=== PATIENT | male | born 1945 | race Caucasian/White ===

== ENCOUNTER 2017-05-11 05:39 | Outpatient (CLI) | payer MEDICARE ==
[~2017-05-11] VITALS: Ht 172.7 cm; Wt 118.8 kg
[~2017-05-11 05:39] MED LIST: AMLO5TAB2 PO; ASP81TEC PO; DXZS4T PO; EZET1TAB43 PO; FURO20TA4 PO; HYDR-3583 PO; INSU100C SQ; LOSA1TAB15 PO; LOVASA PO; LVT.15T PO; MULT-608 PO; PGLT30T PO; QUIN20TA PO; TPR100T PO; VITA200C18 PO
[2017-05-11] MEDS ORDERED: ASPI-999 PO (11:57)
[2017-05-11] MEDS ORDERED: FURO40TA4 PO (11:57)
[2017-05-11] MEDS ORDERED: POTA10TA10 PO (11:57)
[2017-05-11] MEDS ORDERED: SIMV20TA3 PO (11:57)
[2017-05-11] MEDS ORDERED: OMEG1CAP PO (11:57)
[2017-05-11] MEDS ORDERED: LEVO200T6 PO (11:57)
[2017-05-11] MEDS ORDERED: FENO54TA PO (11:57)
[2017-05-11] MEDS ORDERED: PAMI30VI8 SQ (11:57)
[2017-05-11] MEDS ORDERED: MULT1TAB69 PO (11:57)
[2017-05-11] MEDS ORDERED: ACHD5005 PO (11:57)
[2017-05-11] MEDS ORDERED: LOSA1TAB23 PO (11:57)
[2017-05-11] MEDS ORDERED: DOXA4TAB2 PO (11:57)
== END 2017-05-11 11:59 ==
LOC: PREOP 05:39
PROVIDERS: ATTEND Surgery
DX: Z01.818 Encounter for other preprocedural examination (principal); Z12.11 Encounter for screening for malignant neoplasm of colon

== ENCOUNTER 2017-05-14 12:07 | Day surgery (SDC) | payer MEDICARE ==
[~2017-05-14] VITALS: Ht 172.7 cm; Wt 118.8 kg
[~2017-05-14 12:07] MED LIST changes: +ACHD5005 PO; +ASPI-999 PO; +DOXA4TAB2 PO; +FENO54TA PO; +FURO40TA4 PO; +LEVO200T6 PO; +LOSA1TAB23 PO; +MULT1TAB69 PO; +OMEG1CAP PO; +PAMI30VI8 SQ; +POTA10TA10 PO; +SIMV20TA3 PO
--- OUTSIDE RECORDS SUMMARY | 2017-05-14 12:11 | XMS REPORT | Clinical Summary ---
Author Author User, KEYANA Organization [facility] [place] Address Unknown Phone Unavailable Allergies, Adverse Reactions, Alerts Allergy Name Reaction Description Start Date Severity Status Provider No Known Allergies Sylvia Main Conditions or Problems Problem Name Problem Code Onset Date Status Entry Date Provider Comment Standard Description Annotate DIABETES MELLITUS, TYPE II, ON INSULIN, CONTROLLED 250.00 Refinement Brandy Valero Diabetes mellitus without mention of complication, type II or unspecified type, not stated as uncontrolled DIABETES MELLITUS, TYPE I, UNCONTROLLED 250.03 Active Brandy Valero Diabetes mellitus without mention of complication, type I [juvenile type], uncontrolled HYPOTHYROIDISM 244.9 Active Brandy Valero Unspecified hypothyroidism HYPERTENSION, BENIGN ESSENTIAL, UNCONTROLLED 401.1 Active 07/27 Brandy Valero Benign essential hypertension HYPERCHOLESTEROLEMIA 272.0 Active Brandy Valero Pure hypercholesterolemia HYPERTRIGLYCERIDEMIA 272.1 Active Brandy Valero Pure hyperglyceridemia OBESITY 278.00 Active Brandy Valero Obesity, unspecified SNORING 786.09 Refinement Brandy Valero Other dyspnea and respiratory abnormality SLEEP APNEA, CHRONIC 780.57 Active Brandy Valero Unspecified sleep apnea BENIGN PROSTATIC HYPERTROPHY, HX OF V13.8 Active Brandy Valero Personal history of other specified diseases INSULIN PUMP STATUS V45.85 Active Brandy Valero Insulin pump status ACTINIC KERATOSIS 702.0 Resolved Brandy Valero Actinic keratosis SKIN TAG 701.9 Resolved Brandy Valero Unspecified hypertrophic and atrophic conditions of skin BENIGN PROSTATIC HYPERTROPHY, HX OF V13.8 Resolved Brandy Valero Personal history of other specified diseases ERECTILE DYSFUNCTION, 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 Brandy Valero Impotence of organic origin HYPOGLYCEMIA 251.2 Resolved Brandy Valero Hypoglycemia, unspecified RENAL INSUFFICIENCY 593.9 Active Brandy Valero Unspecified disorder of kidney and ureter CHEST PAIN, ATYPICAL 786.59 Resolved Brandy Valero Other chest pain NEUROPATHY, IDIOPATHIC PERIPHERAL 356.9 Resolved Brandy Valero Unspecified idiopathic peripheral neuropathy VACCINE AGAINST STREPTOCOCCUS PNEUMONIAE V03.82 Resolved Brandy Valero Need for prophylactic vaccination against Streptococcus pneumoniae [pneumococcus] HEMATOCHEZIA 578.1 Resolved Brandy Valero Blood in stool Medication List Medication Instructions Start Date Stop Date Generic Name NDC Status Provider Patient Instruction POTASSIUM CHLORIDE ER 10 MEQ CR-CAPS 1 po daily POTASSIUM CHLORIDE 39900618629 Active Brandy Valero SYNTHROID 0.175 MG TAB 1 PO daily LEVOTHYROXINE SODIUM 43224276921 Active Brandy Valero MOBIC 15 MG TABS 1 PO daily. MELOXICAM 76117569644 No Longer Active Brandy Valero HYDROCODONE-ACETAMINOPHEN 5-325 MG TABS 1 PO BID prn. HYDROCODONE- ACETAMINOPHEN 24643427741 Active Brandy Valero LORTAB 5/325 MG 1 to 2 PO Q6hrs prn LORTAB 5/325 MG No Longer Active Livier Rose ACCU-CHEK MULTICLIX LANCETS MISC Test BS QID DX: Diabetes 11/18 LANCETS [id number] No Longer Active Brandytejinder Valero ONE TOUCH ULTRA TEST SRIPS Test BS QID DX: Diabetes ONE TOUCH ULTRA TEST SRIPS No Longer Active Brandy Marlyn Valero ZOCOR 20 MG TAB 1 PO daily SIMVASTATIN 64353299923 Active Livier Rose LASIX 40 MG TAB 1 PO daily as directed FUROSEMIDE 00286637378 Active Brandy Marlyn Valero LOFIBRA 54 MG TABS 1 PO daily FENOFIBRATE 34187709452 Active Livier Rose ZOSTAVAX 74911 UNT/0.65ML SOLR 1 injection once to prevent Shingles ZOSTER VACCINE LIVE 44739626101 No Longer Active Brandy Marlyn Valero LOVAZA 1 GM CAPS 1 po QID AFLBD-9-LBNK ETHYL ESTERS 44379812067 Active Brandy Marlyn Valero ACCUPRIL 20 MG TABS 1 po bid QUINAPRIL HCL 34981087633 No Longer Active Brandy Marlyn Valero TOPAMAX 100 MG TABS 1 po QHS TOPIRAMATE 36711198427 Active Brandy Marlyn Valero TOPAMAX 50 MG TABS 1 po at HS along with 100 mg. to total 150 mg TOPIRAMATE 56390032552 No Longer Active Brandytejinder Valero VITAMIN D 1000 UNIT CAPS 1 po daily CHOLECALCIFEROL 10832553140 Active Brandy Marlyn Valero LASIX 20 MG TABS 1 PO daily FUROSEMIDE 80956226169 No Longer Active Brandy Marlyn Valero VIAGRA 50 MG TABS 1 PO as directed SILDENAFIL CITRATE 10500779468 No Longer Active Brandy Marlyn Valero ECOTRIN 325 MG TBEC 1 po daily ASPIRIN 78624179277 No Longer Active Brandy Marlyn Valero CARDURA 4 MG TABS 1 PO daily DOXAZOSIN MESYLATE 45069585061 Active Livier Rose DOXAZOSIN MESYLATE 4 MG TABS 1 po at hs DOXAZOSIN MESYLATE 68757601789 No Longer Active Brandy Valero GLUCOPHAGE 500 MG TABS 1 po BID METFORMIN HCL 09455583407 No Longer Active Brandytejinder Valero LORTAB 5 5-500 MG TABS 1 to 2 PO Q6hrs prn ACETAMINOPHEN- HYDROCODONE 15165418078 No Longer Active Livier Rose NORVASC 5 MG TAB 1 PO QD AMLODIPINE BESYLATE 53414016228 Active Brandytejinder Valero MADHAV-D 12 HOUR 60-120 MG TB12 1 PO BID prn sinus congestion FEXOFENADINE-PSEUDOEPHEDRINE 88274027498 No Longer Active Brandytejinder Valero LORTAB 5 5-500 MG TABS 1 to 2 PO Q6hrs prn ACETAMINOPHEN- HYDROCODONE 28759049439 No Longer Active Brandy Valero AVANDIA 2 MG TABS 1 po BID ROSIGLITAZONE MALEATE 93843326250 No Longer Active Brandytejinder Valero QUINAPRIL HCL 40 MG TABS 1 po BID QUINAPRIL HCL 29763501046 No Longer Active Brandy Valero ROBITUSSIN A-C 10-100 MG/5ML SYRUP 5cc PO Q 4-6 hr prn ROBITUSSIN A-C 10-100 MG/5ML SYRUP 89996919596 No Longer Active Livier Rose ACCU-CHEK MAXINE TEST SRIPS Test BS QID DX: Diabetes ACCU- CHEK MAXINE TEST SRIPS No Longer Active Livier Rose CIALIS 20 MG TABS 1 PO before sexual activity TADALAFIL 66567022296 No Longer Active Brandy Valero HUMALOG 100 U/ML SOLN 1 unit/hr basal and 25 units before meals INSULIN LISPRO (HUMAN) 25981943788 Active Livier Rose ASPIRIN 81 MG TBEC 2 po daily ASPIRIN 00732263891 Active Brandytejinder Valreo VYTORIN 10-20 MG TABS 1 po daily EZETIMIBE-SIMVASTATIN 22061235164 No Longer Active Philip Barrett FISH OIL 1000 MG CAPS 3 po daily OMEGA-3 FATTY ACIDS 54594632778 No Longer Active Brandy Valero VITAMIN E 400 IU CAPS 1 po daily VITAMIN E 70480348967 Active Brandy Valero MULTIVITAMINS TABS 1 po daily MULTIPLE VITAMIN 15850844436 Active Brandy Valero HYZAAR 100-25 MG TABS 1 po daily LOSARTAN POTASSIUM-HCTZ 21615167417 Active Liviervalencia Rose LIPITOR 20 MG TABS 1 po daily ATORVASTATIN CALCIUM 87730867749 No Longer Active Livier Rose ACTOS 30 MG TABS 1 po daily PIOGLITAZONE HCL 14530203515 Active Livier Rose Immunizations Vaccine Administration Date Value Standard Description Influenza vaccine given done influenza virus vaccine, unspecified formulation Influenza vaccine given Done influenza virus vaccine, unspecified formulation Influenza vaccine given Done influenza virus vaccine, unspecified formulation Influenza vaccine given done influenza virus vaccine, unspecified formulation Influenza vaccine given Received influenza virus vaccine, unspecified formulation pneumococcal immunization administered 1st dose Dr Valero pneumococcal polysaccharide vaccine, 23 valent Vital Signs Date Name Value Unit Range Description blood pressure, diastolic - 8462-4 92 mm[Hg] BP pierre blood pressure, systolic - 8480-6 150 mm[Hg] BP sys pulse rate E&M - 8867-4 60 /min Heart rate respiratory rate E&M - 9279-1 14 /min Resp rate temperature E&M 98.6 [degF] Body temperature weight E&M - 3141-9 250 [lb_av] Weight Measured blood pressure, diastolic - 8462-4 75 mm[Hg] BP pierre blood pressure, systolic - 8480-6 145 mm[Hg] BP sys pulse rate E&M - 8867-4 66 /min Heart rate respiratory rate E&M - 9279-1 14 /min Resp rate temperature E&M 98.6 [degF] Body temperature weight E&M - 3141-9 263 [lb_av] Weight Measured blood pressure, diastolic - 8462-4 88 mm[Hg] BP pierre blood pressure, systolic - 8480-6 154 mm[Hg] BP sys pulse rate E&M - 8867-4 60 /min Heart rate respiratory rate E&M - 9279-1 18 /min Resp rate weight E&M - 3141-9 283 [lb_av] Weight Measured blood pressure, diastolic - 8462-4 78 mm[Hg] BP pierre blood pressure, systolic - 8480-6 150 mm[Hg] BP sys pulse rate E&M - 8867-4 72 /min Heart rate respiratory rate E&M - 9279-1 14 /min Resp rate temperature E&M 98.6 [degF] Body temperature weight E&M - 3141-9 270 [lb_av] Weight Measured Diagnostic Results Date Name Value Unit Range Description Clinical Lists Update: CBC,CMP,Chol,Trig,TSH,Free T4,HgA1c - Chemistry Estimated Glomerular Filtration Rate (calc) 48 mL/min/1.73m2 glucose, plasma fasting 84 mg/dL albumin, serum 4.0 g/dL alkaline phosphatase, serum 41 U/L urea nitrogen, blood 25 mg/dL calcium, serum 9.6 mg/dL chloride, serum 104 mmol/L carbon dioxide, venous blood 26.0 mmol/L anion gap, serum 13 sodium, serum 139 mmol/L bilirubin, serum, total 0.6 mg/dL alanine aminotransferase (SGPT), serum 15 U/L aspartate aminotransferase (SGOT), serum 15 U/L protein, total, serum 6.7 g/dL potassium, serum 3.6 mmol/L thyroid stimulating hormone, serum 1.78 u[iU]/mL hemoglobin A1C, blood, as % of total hemoglobin 6.5 % thyroxine, serum, free 1.28 ng/dL creatinine, serum 1.6 mg/dL Clinical Lists Update: CBC,CMP,Chol,Trig,TSH,Free T4,HgA1c - Hematology red blood cell distribution width 16.5 % hemoglobin, blood 13.3 g/dL platelet count 201 10*3/mm3 erythrocyte (RBC) count 4.63 10*6/mm3 leukocyte count, blood 6.0 10*3/mm3 mean corpuscular volume, RBC 92 fL hematocrit, blood 43 % Clinical Lists Update: CMP,CHOL,TRIG,TSH,FREE T4,HGA1C - Chemistry albumin, serum 4.2 g/dL thyroid stimulating hormone, serum 1.68 u[iU]/mL anion gap, serum 11 urea nitrogen, blood 30 mg/dL potassium, serum 3.3 mmol/L calcium, serum 9.6 mg/dL triglyceride, serum, fasting 139 mg/dL chloride, serum 104 mmol/L protein, total, serum 6.7 g/dL cholesterol, serum 143 mg/dL glucose, plasma fasting 74 mg/dL carbon dioxide, venous blood 27.0 mmol/L aspartate aminotransferase (SGOT), serum 18 U/L creatinine, serum 1.4 mg/dL sodium, serum 139 mmol/L thyroxine, serum, free 1.27 ng/dL alanine aminotransferase (SGPT), serum 13 U/L Estimated Glomerular Filtration Rate (calc) 53 mL/min/1.73m2 hemoglobin A1C, blood, as % of total hemoglobin 6.0 % bilirubin, serum, total 0.5 mg/dL alkaline phosphatase, serum 30 U/L Clinical Lists Update: CMP,FLP,TSH,FREE T4,HGA1C - Chemistry alkaline phosphatase, serum 30 U/L albumin, serum 4.2 g/dL urea nitrogen, blood 25 mg/dL calcium, serum 10.1 mg/dL chloride, serum 103 mmol/L cholesterol, serum 143 mg/dL carbon dioxide, venous blood 28.0 mmol/L creatinine, serum 1.7 mg/dL thyroxine, serum, free 0.95 ng/dL HDL cholesterol, serum 49.0 mg/dL hemoglobin A1C, blood, as % of total hemoglobin 5.9 % LDL cholesterol, serum 68 mg/dL potassium, serum 3.5 mmol/L protein, total, serum 6.8 g/dL aspartate aminotransferase (SGOT), serum 18 U/L alanine aminotransferase (SGPT), serum 13 U/L bilirubin, serum, total 0.6 mg/dL triglyceride, serum, fasting 130 mg/dL sodium, serum 141 mmol/L anion gap, serum 14 cholesterol/HDL ratio, serum, percent 2.9 glucose, plasma fasting 80 mg/dL Estimated Glomerular Filtration Rate (calc) 43 mL/min/1.73m2 thyroid stimulating hormone, serum 8.71 u[iU]/mL Clinical Lists Update: CMP,TSH,Free T4,HgA1c,Microalbumin - Chemistry Estimated Glomerular Filtration Rate (calc) 50 mL/min/1.73m2 glucose, plasma fasting 141 mg/dL cholesterol/HDL ratio, serum, percent 3.8 anion gap, serum 10 sodium, serum 139 mmol/L triglyceride, serum, fasting 227 mg/dL bilirubin, serum, total 0.5 mg/dL alanine aminotransferase (SGPT), serum 13 U/L aspartate aminotransferase (SGOT), serum 18 U/L protein, total, serum 6.9 g/dL potassium, serum 3.9 mmol/L LDL cholesterol, serum 80 mg/dL thyroid stimulating hormone, serum 4.98 u[iU]/mL hemoglobin A1C, blood, as % of total hemoglobin 6.5 % HDL cholesterol, serum 45.0 mg/dL thyroxine, serum, free 1.16 ng/dL creatinine, serum 1.5 mg/dL carbon dioxide, venous blood 28.0 mmol/L cholesterol, serum 170 mg/dL chloride, serum 105 mmol/L calcium, serum 10.0 mg/dL urea nitrogen, blood 26 mg/dL alkaline phosphatase, serum 45 U/L albumin, serum 4.2 g/dL Clinical Lists Update: CMP,TSH,Free T4,HgA1c,Microalbumin - Urinalysis microalbumin, urine, semiquantitative 0.7 mg/dL Encounters Code Encounter Date Provider Facility CPT-78143 Ofc Vst, Est Level III 21:06:44 CDT Brandy Valero DO, FACP CPT-06910 Ofc Vst, Est Level III 21:05:26 CDT Brandy Valero DO, FACP CPT-50635 Ofc Vst, Est Level III 16:08:34 CDT Brandy Valero DO, FACP CPT-16988 Ofc Vst, Est Level III 14:20:40 CDT Brandy Valero DO, FACP CPT-83454 Ofc Vst, Est Level III 16:19:53 [employer] Brandy Huston Valero, DO, FACP CPT-07017 Ofc Vst, Est Level III 15:17:38 CDT Brandytejinder Huston Valero, DO, FACP CPT-40680 Ofc Vst, Est Level III 15:51:15 [employer] Brandy Huston Valero, DO, FACP CPT-56368 Ofc Vst, Est Level IV 13:53:20 CDT Brandytejinder Huston Valero, DO, FACP CPT-57661 Ofc Vst, Est Level IV 13:48:08 CDT Brandytejinder Huston Valero, DO, FACP CPT-30265 Ofc Vst, Est Level IV 11:35:33 [employer] Brandy Huston Marylu, DO, FACP CPT-57042 Ofc Vst, New Level IV 14:26:52 [employer] Brandy Huston Valero, DO, FACP CPT-86688 Ofc Vst, Est Level IV 10:18:50 CDT Brandy Huston Valero, DO, FACP CPT-37250 Ofc Vst, Est Level IV 11:04:40 CDT Brandy Huston Valero, DO, FACP CPT-56666 Ofc Vst, Est Level IV 09:58:36 [employer] Brandy Huston Valero, DO, FACP CPT-98300 Office Consult, Level IV 12:01:33 [employer] Brandy Huston Valero, DO, FACP CPT-01122 Ofc Vst, Est Level IV 11:53:36 CDT Brandy Huston Marylu, DO, FACP CPT-42133 Ofc Vst, Est Level IV 14:23:33 CDT Brandytejinder Valero [facility] CPT-35438 Ofc Vst, Est Level IV 15:40:31 CDT Branydtejinder Cline Marylu [facility] CPT-79398 Ofc Vst, Est Level V 14:39:00 CDT Brandy Marlyn Marylu [facility] CPT-72274 Ofc Vst, Est Level IV 11:56:16 CDT Brandy Marlyn Marylu Valero DO, FACP CPT-48545 Ofc Vst, Est Level IV 13:26:19 [employer] Brandy Marlynsamm Valero DO, FACP CPT-47945 Ofc Vst, Est Level IV 15:50:15 CDT Brandy Marlynsamm Valero DO, FACP CPT-59020 Ofc Vst, Est Level IV 09:48:02 CDT Brandy Marlynsamm Valeor DO, FACP CPT-39779 Ofc Vst, Est Level IV 09:41:32 CDT Brandy Valero [facility] [place] CPT-04410 Ofc Vst, Est Level IV 11:54:23 [employer] Brandy Valero [facility] [place] CPT-65667 Ofc Vst, Est Level IV 16:28:13 [employer] Brandy Valero [facility] [place] CPT-56667 Ofc Vst, Est Level IV 12:52:20 [employer] Brandy Valero [facility] [place] CPT-90781 Ofc Vst, Est Level IV 17:48:58 CDT Brandy Valero [facility] [place] CPT-42857 Ofc Vst, New Level IV 11:59:00 CDT Brandy Valero [facility] [place] Procedures Code Procedure Name Date Entry Date Standard Description CPT-G0439 Medicare Annual Wellness Visit 16:56:34 CDT CPT-G8445 E-Prescribing Not sent due to no medication given 14:20: 40 CDT CPT-G8445 E-Prescribing Not sent due to no medication given 16:19: 53 [employer] CPT-G8445 E-Prescribing Not sent due to no medication given 17:14: 55 CDT CPT-G0438 Medicare Annual Wellness Visit Initial 17:14:55 CDT CPT-G8446 E-Prescribing not done due to controlled substance 15:17 :38 CDT CPT-G8445 E-Prescribing Not sent due to no medication given 15:51: 15 [employer] CPT-48623 Administration of 1st dose vaccine 09:58:36 [employer] CPT-63949 Injection, Pneumovax 09:58:36 [employer] CPT-01356 Cryopathy Skin 17:48:58 CDT
--- OUTSIDE RECORDS SUMMARY | 2017-05-14 12:12 | XMS REPORT | Clinical Summary ---
Author Author User, [employer] Organization [facility] [place] Address Unknown Phone Unavailable Allergies, Adverse Reactions, [...] Generic Name NDC Status Provider Patient Instruction SYNTHROID 0.175 MG TAB 1 PO daily LEVOTHYROXINE SODIUM 16164905377 Active Brandy Valero MOBIC 15 MG TABS 1 PO daily. MELOXICAM 87368828414 No Longer Active Brandy Valero HYDROCODONE-ACETAMINOPHEN 5-325 MG TABS 1 PO BID prn. HYDROCODONE- ACETAMINOPHEN 18071103605 Active Brandy Valero LORTAB 5/325 MG 1 to 2 PO Q6hrs prn LORTAB 5/325 MG No Longer Active Livier Rose ACCU-CHEK MULTICLIX LANCETS MISC Test BS QID DX: Diabetes 11/18 LANCETS 25891658424 No Longer Active Brandy Valero ONE TOUCH ULTRA TEST SRIPS Test BS QID DX: Diabetes ONE TOUCH ULTRA TEST SRIPS No Longer Active Brandytejinder Valero ZOCOR 20 MG TAB 1 PO daily SIMVASTATIN 47657770826 Active Liviervalencia Rose LASIX 40 MG TAB 1 PO daily as directed FUROSEMIDE 49876720562 Active Brandy Marlyn Valero LOFIBRA 54 MG TABS 1 PO daily FENOFIBRATE 81530439647 Active Liviervalencia Rose ZOSTAVAX 77219 UNT/0.65ML SOLR 1 injection once to prevent Shingles ZOSTER VACCINE LIVE 50393932267 No Longer Active Brandy Marlyn Valero LOVAZA 1 GM CAPS 1 po QID OUSNP-8-BAJX ETHYL ESTERS 56638342063 Active Brandy Marlyn Valero ACCUPRIL 20 MG TABS 1 po bid QUINAPRIL HCL 75460219398 No Longer Active Brandytejinder Valero TOPAMAX 100 MG TABS 1 po QHS TOPIRAMATE 45888114312 Active Brandy Marlyn Valero TOPAMAX 50 MG TABS 1 po at HS along with 100 mg. to total 150 mg TOPIRAMATE 88428325138 No Longer Active Brnadytejinder Valero VITAMIN D 1000 UNIT CAPS 1 po daily CHOLECALCIFEROL 23546079977 Active Brandytejinder Valero LASIX 20 MG TABS 1 PO daily FUROSEMIDE 93078499497 No Longer Active Brandy Marlyn Valero VIAGRA 50 MG TABS 1 PO as directed SILDENAFIL CITRATE 76161200282 No Longer Active Brandy Marlyn Valero ECOTRIN 325 MG TBEC 1 po daily ASPIRIN 88054225659 No Longer Active Brandy Marlyn Valero CARDURA 4 MG TABS 1 PO daily DOXAZOSIN MESYLATE 26193195438 Active Livier Rose DOXAZOSIN MESYLATE 4 MG TABS 1 po at hs DOXAZOSIN MESYLATE 87356826445 No Longer Active Brandy Marlyn Valero GLUCOPHAGE 500 MG TABS 1 po BID METFORMIN HCL 88712856302 No Longer Active Brandy Valero LORTAB 5 5-500 MG TABS 1 to 2 PO Q6hrs prn ACETAMINOPHEN- HYDROCODONE 71964829826 No Longer Active Livier Rose NORVASC 5 MG TAB 1 PO QD AMLODIPINE BESYLATE 02797765031 Active Brandytejinder Valero MADHAV-D 12 HOUR 60-120 MG TB12 1 PO BID prn sinus congestion FEXOFENADINE-PSEUDOEPHEDRINE 40454752172 No Longer Active Brandytejinder Valero LORTAB 5 5-500 MG TABS 1 to 2 PO Q6hrs prn ACETAMINOPHEN- HYDROCODONE 59097907283 No Longer Active Brandy Valero AVANDIA 2 MG TABS 1 po BID ROSIGLITAZONE MALEATE 97949827799 No Longer Active Brandy Valero QUINAPRIL HCL 40 MG TABS 1 po BID QUINAPRIL HCL 88196231115 No Longer Active Brandytejinder Valero ROBITUSSIN A-C 10-100 MG/5ML SYRUP 5cc PO Q 4-6 hr prn ROBITUSSIN A-C 10-100 MG/5ML SYRUP 95723822441 No Longer Active Livier Rose ACCU-CHEK MAXINE TEST SRIPS Test BS QID DX: Diabetes ACCU- CHEK MAXINE TEST SRIPS No Longer Active Livier Rose CIALIS 20 MG TABS 1 PO before sexual activity TADALAFIL 86219104244 No Longer Active Brandy Valero HUMALOG 100 U/ML SOLN 1 unit/hr basal and 25 units before meals INSULIN LISPRO (HUMAN) 79762822152 Active Livier Rose ASPIRIN 81 MG TBEC 2 po daily ASPIRIN 64562096868 Active Brandytejinder Valero VYTORIN 10-20 MG TABS 1 po daily EZETIMIBE-SIMVASTATIN 25803842314 No Longer Active Philip Rudd FISH OIL 1000 MG CAPS 3 po daily OMEGA-3 FATTY ACIDS 82498623841 No Longer Active Brandy Valero VITAMIN E 400 IU CAPS 1 po daily VITAMIN E 90711203798 Active Brandy Valero MULTIVITAMINS TABS 1 po daily MULTIPLE VITAMIN 33895448328 Active Brandy Valero HYZAAR 100-25 MG TABS 1 po daily [place]ARTAN POTASSIUM-HCTZ 16617275309 Active Livier Myricktis LIPITOR 20 MG TABS 1 po daily ATORVASTATIN CALCIUM 27674499758 No Longer Active Liviervalencia Rose ACTOS 30 MG TABS 1 po daily PIOGLITAZONE HCL 67404687692 Active Livier Rose Immunizations Vaccine Administration Date [...] Range Description blood pressure, diastolic - 8462-4 75 mm[Hg] [...] Clinical Lists Update: CBC,CMP,Chol,Trig,TSH,Free T4,HgA1c - Chemistry alanine aminotransferase (SGPT), serum 15 U/L carbon dioxide, venous blood 26.0 mmol/L thyroxine, serum, free 1.28 ng/dL aspartate aminotransferase (SGOT), serum 15 U/L creatinine, serum 1.6 mg/dL sodium, serum 139 mmol/L anion gap, serum 13 albumin, serum 4.0 g/dL thyroid stimulating hormone, serum 1.78 u[iU]/mL alkaline phosphatase, serum 41 U/L bilirubin, serum, total 0.6 mg/dL urea nitrogen, blood 25 mg/dL glucose, plasma fasting 84 mg/dL calcium, serum 9.6 mg/dL potassium, serum 3.6 mmol/L chloride, serum 104 mmol/L Estimated Glomerular Filtration Rate (calc) 48 mL/min/1.73m2 protein, total, serum 6.7 g/dL hemoglobin A1C, blood, as % of total hemoglobin 6.5 % Clinical Lists Update: CBC,CMP,Chol,Trig,TSH,Free T4,HgA1c - Hematology hematocrit, blood 43 % red blood cell distribution width 16.5 % mean corpuscular volume, RBC 92 fL leukocyte count, blood 6.0 10*3/mm3 erythrocyte (RBC) count 4.63 10*6/mm3 hemoglobin, blood 13.3 g/dL platelet count 201 10*3/mm3 Clinical Lists Update: CMP,FLP,TSH,FREE T4,HGA1C - Chemistry albumin, serum 4.2 g/dL alkaline phosphatase, serum 30 U/L urea nitrogen, blood 25 mg/dL calcium, serum 10.1 mg/dL chloride, serum 103 mmol/L cholesterol, serum 143 mg/dL carbon dioxide, venous blood 28.0 mmol/L creatinine, serum 1.7 mg/dL thyroxine, serum, free 0.95 ng/dL HDL cholesterol, serum 49.0 mg/dL hemoglobin A1C, blood, as % of total hemoglobin 5.9 % thyroid stimulating hormone, serum 8.71 u[iU]/mL LDL cholesterol, serum 68 mg/dL potassium, serum 3.5 mmol/L protein, total, serum 6.8 g/dL aspartate aminotransferase (SGOT), serum 18 U/L alanine aminotransferase (SGPT), serum 13 U/L bilirubin, serum, total 0.6 mg/dL triglyceride, serum, fasting 130 mg/dL sodium, serum 141 mmol/L anion gap, serum 14 cholesterol/HDL ratio, serum, percent 2.9 glucose, plasma fasting 80 mg/dL Estimated Glomerular Filtration Rate (calc) 43 mL/min/1.73m2 Clinical Lists Update: CMP,TSH,Free T4,HgA1c,Microalbumin - Chemistry [...] mg/dL Encounters Code Encounter Date Provider Facility CPT-08352 Ofc Vst, Est Level III 21:05:26 CDT Brandy Valero DO, FACP CPT-20946 Ofc Vst, Est Level III 16:08:34 CDT Brandy Valero DO, FACP CPT-81500 Ofc Vst, Est Level III 14:20:40 CDT Brandy Valero DO, FACP CPT-86624 Ofc Vst, Est Level III 16:19:53 [facility] Brandy Valero DO, FACP CPT-68306 Ofc Vst, Est Level III 15:17:38 CDT Brandytejinder Huston Marylu, DO, FACP CPT-30485 Ofc Vst, Est Level III 15:51:15 [facility] Brandy Huston Marylu, DO, FACP CPT-25953 Ofc Vst, Est Level IV 13:53:20 CDT Brandy Marlyn Huston Marylu, DO, FACP CPT-67354 Ofc Vst, Est Level IV 13:48:08 CDT Brandy Marlyn Huston Marylu, DO, FACP CPT-27149 Ofc Vst, Est Level IV 11:35:33 [facility] Brandy Huston Marylu, DO, FACP CPT-38315 Ofc Vst, New Level IV 14:26:52 [facility] Brandy Marlyn Huston Marylu, DO, FACP CPT-86233 Ofc Vst, Est Level IV 10:18:50 CDT Brandy Marlyn Huston Marylu, DO, FACP CPT-23363 Ofc Vst, Est Level IV 11:04:40 CDT Brandy Marlyn Huston Marylu, DO, FACP CPT-46681 Ofc Vst, Est Level IV 09:58:36 [facility] Brandy Huston Marylu, DO, FACP CPT-27758 Office Consult, Level IV 12:01:33 [facility] Brandy Huston Marylu, DO, FACP CPT-53475 Ofc Vst, Est Level IV 11:53:36 CDT Brandy Marlyn Huston Marylu, DO, FACP CPT-18983 Ofc Vst, Est Level IV 14:23:33 CDT Brandy Marlyn Marylu [facility] CPT-34074 Ofc Vst, Est Level IV 15:40:31 CDT Brandy Marlyn Marylu [facility] CPT-83776 Ofc Vst, Est Level V 14:39:00 CDT [facility] Marlyn Velardener [facility] CPT-99707 Ofc Vst, Est Level IV 11:56:16 CDT Brandytejinder Velardeshane Valero, DO, FACP CPT-17077 Ofc Vst, Est Level IV 13:26:19 [facility] Brandytejinder Cline Marylu Valero, DO, FACP CPT-70301 Ofc Vst, Est Level IV 15:50:15 CDT Brandy Marlyn Marylu Valero, DO, FACP CPT-58222 Ofc Vst, Est Level IV 09:48:02 CDT Brandy Marlyn Marylu Valero, DO, FACP CPT-57187 Ofc Vst, Est Level IV 09:41:32 CDT Brandytejinder Valero [facility] CPT-14649 Ofc Vst, Est Level IV 11:54:23 [facility] Brandy Valero [facility] [place] CPT-61842 Ofc Vst, Est Level IV 16:28:13 [facility] Brandy Valero [facility] CPT-69885 Ofc Vst, Est Level IV 12:52:20 [facility] Brandy Valero [facility] CPT-70053 Ofc Vst, Est Level IV 17:48:58 CDT Brandy Marlyn Valero [facility] CPT-02291 Ofc Vst, New Level IV 11:59:00 CDT Brandytejinder Valero [facility] Procedures Code Procedure Name Date Entry Date Standard Description CPT-G0439 Medicare Annual Wellness Visit 16:56:34 CDT CPT-G8445 E-Prescribing Not sent due to no medication given 14:20: 40 CDT CPT-G8445 E-Prescribing Not sent due to no medication given 16:19: 53 [facility] CPT-G8445 E-Prescribing Not sent due to no medication given 17:14: 55 CDT CPT-G0438 Medicare Annual Wellness Visit Initial 17:14:55 CDT CPT-G8446 E-Prescribing not done due to controlled substance 15:17 :38 CDT CPT-G8445 E-Prescribing Not sent due to no medication given 15:51: 15 [facility] CPT-99056 Administration of 1st dose vaccine 09:58:36 [facility] CPT-37623 Injection, Pneumovax 09:58:36 [facility] CPT-69191 Cryopathy Skin 17:48:58 CDT
--- OUTSIDE RECORDS SUMMARY | 2017-05-14 12:13 | XMS REPORT | Clinical Summary ---
Author Author User, [employer] Organization [facility] [place] Address Unknown Phone Unavailable Allergies, Adverse Reactions, [...] MG TAB 1 PO daily LEVOTHYROXINE SODIUM 33643917970 Active Brandy Valero MOBIC 15 MG TABS 1 PO daily. MELOXICAM 93237149904 No Longer Active Brandy Valero HYDROCODONE-ACETAMINOPHEN 5-325 MG TABS 1 PO BID prn. HYDROCODONE- ACETAMINOPHEN 88372182070 Active Brandy Valero LORTAB 5/325 MG 1 to 2 PO Q6hrs prn LORTAB 5/325 MG No Longer Active Livier Rose ACCU-CHEK MULTICLIX LANCETS MISC Test BS QID DX: Diabetes 11/18 LANCETS 99930895914 No Longer Active Brandy Valero ONE TOUCH ULTRA TEST SRIPS Test BS QID DX: Diabetes ONE TOUCH ULTRA TEST SRIPS No Longer Active Brandytejinder Valero ZOCOR 20 MG TAB 1 PO daily SIMVASTATIN 63885220279 Active Liviervalencia Rose LASIX 40 MG TAB 1 PO daily as directed FUROSEMIDE 12303820927 Active Brandy Marlyn Valero LOFIBRA 54 MG TABS 1 PO daily FENOFIBRATE 73873951340 Active Liviervalencia Rose ZOSTAVAX 44390 UNT/0.65ML SOLR 1 injection once to prevent Shingles ZOSTER VACCINE LIVE 56934435758 No Longer Active Brandy Marlyn Valero LOVAZA 1 GM CAPS 1 po QID LLLPX-0-RESS ETHYL ESTERS 09028608525 Active Brandy Marlyn Valero ACCUPRIL 20 MG TABS 1 po bid QUINAPRIL HCL 28779518833 No Longer Active Brandytejinder Valero TOPAMAX 100 MG TABS 1 po QHS TOPIRAMATE 40573847701 Active Brandy Marlyn Valero TOPAMAX 50 MG TABS 1 po at HS along with 100 mg. to total 150 mg TOPIRAMATE 54583646172 No Longer Active Brandytejinder Valero VITAMIN D 1000 UNIT CAPS 1 po daily CHOLECALCIFEROL 22960904129 Active Brandytejinder Valero LASIX 20 MG TABS 1 PO daily FUROSEMIDE 14641607300 No Longer Active Brandy Marlyn Valero VIAGRA 50 MG TABS 1 PO as directed SILDENAFIL CITRATE 84477612989 No Longer Active Brandy Marlyn Valero ECOTRIN 325 MG TBEC 1 po daily ASPIRIN 33758078238 No Longer Active Brandy Marlyn Valero CARDURA 4 MG TABS 1 PO daily DOXAZOSIN MESYLATE 15501747378 Active Livier Rose DOXAZOSIN MESYLATE 4 MG TABS 1 po at hs DOXAZOSIN MESYLATE 77713382310 No Longer Active Brandy Marlyn Valero GLUCOPHAGE 500 MG TABS 1 po BID METFORMIN HCL 34904633710 No Longer Active Brandy Valero LORTAB 5 5-500 MG TABS 1 to 2 PO Q6hrs prn ACETAMINOPHEN- HYDROCODONE 12665517585 No Longer Active Livier Rose NORVASC 5 MG TAB 1 PO QD AMLODIPINE BESYLATE 34323430628 Active Brandytejinder Valero MADHAV-D 12 HOUR 60-120 MG TB12 1 PO BID prn sinus congestion FEXOFENADINE-PSEUDOEPHEDRINE 74718429980 No Longer Active Brandytejinder Valero LORTAB 5 5-500 MG TABS 1 to 2 PO Q6hrs prn ACETAMINOPHEN- HYDROCODONE 48715225517 No Longer Active Brandy Valero AVANDIA 2 MG TABS 1 po BID ROSIGLITAZONE MALEATE 42934528650 No Longer Active Brandy Valero QUINAPRIL HCL 40 MG TABS 1 po BID QUINAPRIL HCL 57529851632 No Longer Active Brandytejinder Valero ROBITUSSIN A-C 10-100 MG/5ML SYRUP 5cc PO Q 4-6 hr prn ROBITUSSIN A-C 10-100 MG/5ML SYRUP 03648629512 No Longer Active Livier Rose ACCU-CHEK MAXINE TEST SRIPS Test BS QID DX: Diabetes ACCU- CHEK MAXINE TEST SRIPS No Longer Active Livier Rose CIALIS 20 MG TABS 1 PO before sexual activity TADALAFIL 25512978932 No Longer Active Brandy Valero HUMALOG 100 U/ML SOLN 1 unit/hr basal and 25 units before meals INSULIN LISPRO (HUMAN) 55665125270 Active Livier Rose ASPIRIN 81 MG TBEC 2 po daily ASPIRIN 28652210028 Active Brandytejinder Valero VYTORIN 10-20 MG TABS 1 po daily EZETIMIBE-SIMVASTATIN 39370501462 No Longer Active Philip [place] FISH OIL 1000 MG CAPS 3 po daily OMEGA-3 FATTY ACIDS 02209690168 No Longer Active Brandy Valero VITAMIN E 400 IU CAPS 1 po daily VITAMIN E 38396200276 Active Brandy Valero MULTIVITAMINS TABS 1 po daily MULTIPLE VITAMIN 42068210997 Active Brandy Valero HYZAAR 100-25 MG TABS 1 po daily LOSARTAN POTASSIUM-HCTZ 06543514675 Active Livier Myricktis LIPITOR 20 MG TABS 1 po daily ATORVASTATIN CALCIUM 50421794716 No Longer Active Liviervalencia Rose ACTOS 30 MG TABS 1 po daily PIOGLITAZONE HCL 29450676993 Active Livier Rose Immunizations Vaccine Administration Date [...] mg/dL Encounters Code Encounter Date Provider Facility CPT-82251 Ofc Vst, Est Level III 21:05:26 CDT Brandy Valero DO, FACP CPT-44041 Ofc Vst, Est Level III 16:08:34 CDT Brandy Valero DO, FACP CPT-36132 Ofc Vst, Est Level III 14:20:40 CDT Brandy Valero DO, FACP CPT-33770 Ofc Vst, Est Level III 16:19:53 EDUCATION SPEC Brandy Valero DO, FACP CPT-97257 Ofc Vst, Est Level III 15:17:38 CDT Brandytejinder Huston Marylu, DO, FACP CPT-86347 Ofc Vst, Est Level III 15:51:15 EDUCATION SPEC Brandy Huston Marylu, DO, FACP CPT-00686 Ofc Vst, Est Level IV 13:53:20 CDT Brandy Marlyn Huston Marylu, DO, FACP CPT-24955 Ofc Vst, Est Level IV 13:48:08 CDT Brandy Marlyn Huston Marylu, DO, FACP CPT-16113 Ofc Vst, Est Level IV 11:35:33 EDUCATION SPEC Brandy Huston Marylu, DO, FACP CPT-89029 Ofc Vst, New Level IV 14:26:52 EDUCATION SPEC Brandy Marlyn Huston Marylu, DO, FACP CPT-00920 Ofc Vst, Est Level IV 10:18:50 CDT Brandy Marlyn Huston Marylu, DO, FACP CPT-69244 Ofc Vst, Est Level IV 11:04:40 CDT Brandy Marlyn Huston Marylu, DO, FACP CPT-50147 Ofc Vst, Est Level IV 09:58:36 EDUCATION SPEC Brandy Huston Marylu, DO, FACP CPT-86592 Office Consult, Level IV 12:01:33 EDUCATION SPEC Brandy Huston Marylu, DO, FACP CPT-64177 Ofc Vst, Est Level IV 11:53:36 CDT Brandy Marlyn Huston Marylu, DO, FACP CPT-80520 Ofc Vst, Est Level IV 14:23:33 CDT Brandy Marlyn Marylu [facility] CPT-54162 Ofc Vst, Est Level IV 15:40:31 CDT Brandy Marlyn Marylu [facility] CPT-77653 Ofc Vst, Est Level V 14:39:00 CDT [facility] Marlyn Velardener [facility] CPT-84616 Ofc Vst, Est Level IV 11:56:16 CDT Brandytejinder Velardeshane Valero, DO, FACP CPT-51342 Ofc Vst, Est Level IV 13:26:19 EDUCATION SPEC Brandytejinder Cline Marylu Valero, DO, FACP CPT-37927 Ofc Vst, Est Level IV 15:50:15 CDT Brandy Marlyn Marylu Valero, DO, FACP CPT-11948 Ofc Vst, Est Level IV 09:48:02 CDT Brandy Marlyn Marylu Valero, DO, FACP CPT-77350 Ofc Vst, Est Level IV 09:41:32 CDT Brandytejnider Valero [facility] [place] CPT-96412 Ofc Vst, Est Level IV 11:54:23 EDUCATION SPEC Brandy Valero [facility] [place] CPT-65699 Ofc Vst, Est Level IV 16:28:13 EDUCATION SPEC Brandy Valero [facility] [place] CPT-54273 Ofc Vst, Est Level IV 12:52:20 EDUCATION SPEC Brandy Valero [facility] [place] CPT-06193 Ofc Vst, Est Level IV 17:48:58 CDT Brandy Marlyn Valero [facility] [place] CPT-16589 Ofc Vst, New Level IV 11:59:00 CDT Brandytejinder Valero [facility] [place] Procedures Code Procedure Name Date Entry Date Standard Description CPT-G0439 Medicare Annual Wellness Visit 16:56:34 CDT CPT-G8445 E-Prescribing Not sent due to no medication given 14:20: 40 CDT CPT-G8445 E-Prescribing Not sent due to no medication given 16:19: 53 EDUCATION SPEC CPT-G8445 E-Prescribing Not sent due to no medication given 17:14: 55 CDT CPT-G0438 Medicare Annual Wellness Visit Initial 17:14:55 CDT CPT-G8446 E-Prescribing not done due to controlled substance 15:17 :38 CDT CPT-G8445 E-Prescribing Not sent due to no medication given 15:51: 15 EDUCATION SPEC CPT-88124 Administration of 1st dose vaccine 09:58:36 EDUCATION SPEC CPT-13905 Injection, Pneumovax 09:58:36 EDUCATION SPEC CPT-66027 Cryopathy Skin 17:48:58 CDT
--- OUTSIDE RECORDS SUMMARY | 2017-05-14 12:13 | XMS REPORT | Clinical Summary ---
Author Author User, KEYANA Organization [facility] [place] Address Unknown Phone Unavailable Allergies, Adverse Reactions, [...] MELLITUS, TYPE I, UNCONTROLLED 250.03 Active Brandy Valreo Diabetes mellitus without mention of complication, type [...] Valero Actinic keratosis SKIN TAG 701.9 Resolved Branyd Valero Unspecified hypertrophic and atrophic conditions of [...] MG TAB 1 PO daily LEVOTHYROXINE SODIUM 10945267089 Active Brandy Valero MOBIC 15 MG TABS 1 PO daily. MELOXICAM 60086240315 No Longer Active Brandy Valero HYDROCODONE-ACETAMINOPHEN 5-325 MG TABS 1 PO BID prn. HYDROCODONE- ACETAMINOPHEN 75382656272 Active Brandy Valero LORTAB 5/325 MG 1 to 2 PO Q6hrs prn LORTAB 5/325 MG No Longer Active Livier Rose ACCU-CHEK MULTICLIX LANCETS MISC Test BS QID DX: Diabetes 11/18 LANCETS 34776051608 No Longer Active Brandy Valero ONE TOUCH ULTRA TEST SRIPS Test BS QID DX: Diabetes ONE TOUCH ULTRA TEST SRIPS No Longer Active Brandy Marlyn Valero ZOCOR 20 MG TAB 1 PO daily SIMVASTATIN 96446623614 Active Liviervalencia Rose LASIX 40 MG TAB 1 PO daily as directed FUROSEMIDE 60526594627 Active Brandy Marlyn Valero LOFIBRA 54 MG TABS 1 PO daily FENOFIBRATE 31214345675 Active Livier Myricktis ZOSTAVAX 35358 UNT/0.65ML SOLR 1 injection once to prevent Shingles ZOSTER VACCINE LIVE 65714373466 No Longer Active Brandy Marlyn Valero LOVAZA 1 GM CAPS 1 po QID [id number] ETHYL ESTERS 53943069606 Active Brandy Marlyn Valero ACCUPRIL 20 MG TABS 1 po bid QUINAPRIL HCL 73358098712 No Longer Active Brandy Marlyn Valero TOPAMAX 100 MG TABS 1 po QHS TOPIRAMATE 95922806123 Active Brandy Marlyn Valero TOPAMAX 50 MG TABS 1 po at HS along with 100 mg. to total 150 mg TOPIRAMATE 15943269714 No Longer Active Brandytejinder Valero VITAMIN D 1000 UNIT CAPS 1 po daily CHOLECALCIFEROL 88346683732 Active Brandy Marlyn Valero LASIX 20 MG TABS 1 PO daily FUROSEMIDE 59301849994 No Longer Active Brandy Marlyn Valero VIAGRA 50 MG TABS 1 PO as directed SILDENAFIL CITRATE 15791913382 No Longer Active Brandy Marlyn Valero ECOTRIN 325 MG TBEC 1 po daily ASPIRIN 67663310689 No Longer Active Brandy Marlyn Valero CARDURA 4 MG TABS 1 PO daily DOXAZOSIN MESYLATE 03552607207 Active Livier Rose DOXAZOSIN MESYLATE 4 MG TABS 1 po at hs DOXAZOSIN MESYLATE 70815318195 No Longer Active Brandy Marlyn Valero GLUCOPHAGE 500 MG TABS 1 po BID METFORMIN HCL 91593762139 No Longer Active Brandy Valero LORTAB 5 5-500 MG TABS 1 to 2 PO Q6hrs prn ACETAMINOPHEN- HYDROCODONE 88473596093 No Longer Active Livier Rose NORVASC 5 MG TAB 1 PO QD AMLODIPINE BESYLATE 26466476448 Active Brandytejinder Valero MADHAV-D 12 HOUR 60-120 MG TB12 1 PO BID prn sinus congestion FEXOFENADINE-PSEUDOEPHEDRINE 54822340828 No Longer Active Brandytejinder Valero LORTAB 5 5-500 MG TABS 1 to 2 PO Q6hrs prn ACETAMINOPHEN- HYDROCODONE 11353313208 No Longer Active Brandytejinder Valero AVANDIA 2 MG TABS 1 po BID ROSIGLITAZONE MALEATE 56302102185 No Longer Active Brandy Valero QUINAPRIL HCL 40 MG TABS 1 po BID QUINAPRIL HCL 46317372024 No Longer Active Brandytejinder Valero ROBITUSSIN A-C 10-100 MG/5ML SYRUP 5cc PO Q 4-6 hr prn ROBITUSSIN A-C 10-100 MG/5ML SYRUP 47020969841 No Longer Active Livier Rose ACCU-CHEK MAXINE TEST SRIPS Test BS QID DX: Diabetes ACCU- CHEK MAXINE TEST SRIPS No Longer Active Livier Rose CIALIS 20 MG TABS 1 PO before sexual activity TADALAFIL 05694249920 No Longer Active Brandy Valero HUMALOG 100 U/ML SOLN 1 unit/hr basal and 25 units before meals INSULIN LISPRO (HUMAN) 53689584864 Active Livier Rose ASPIRIN 81 MG TBEC 2 po daily ASPIRIN 49616669563 Active Brandytejinder Valreo VYTORIN 10-20 MG TABS 1 po daily EZETIMIBE-SIMVASTATIN 97164406693 No Longer Active Philip Nena FISH OIL 1000 MG CAPS 3 po daily OMEGA-3 FATTY ACIDS 15304779918 No Longer Active Brandy Valero VITAMIN E 400 IU CAPS 1 po daily VITAMIN E 23514128203 Active Brandy Valero MULTIVITAMINS TABS 1 po daily MULTIPLE VITAMIN 81906115698 Active Brandy Valero HYZAAR 100-25 MG TABS 1 po daily LOSARTAN POTASSIUM-HCTZ 96328894643 Active Livier Rose LIPITOR 20 MG TABS 1 po daily ATORVASTATIN CALCIUM 83590232827 No Longer Active Liviervalencia Rose ACTOS 30 MG TABS 1 po daily PIOGLITAZONE HCL 38358509925 Active Livier Myricktis Immunizations Vaccine Administration Date Value Standard Description [...] mg/dL Encounters Code Encounter Date Provider Facility CPT-18447 Ofc Vst, Est Level III 21:05:26 CDT Brandy Valero DO, FACP CPT-69854 Ofc Vst, Est Level III 16:08:34 CDT Brandy Valero DO, FACP CPT-64949 Ofc Vst, Est Level III 14:20:40 CDT Brandy Valero DO, FACP CPT-67690 Ofc Vst, Est Level III 16:19:53 [employer]ORTS RECRUITER Brandy Valero DO, FACP CPT-35283 Ofc Vst, Est Level III 15:17:38 CDT Brandytejinder Huston Marylu, DO, FACP CPT-76083 Ofc Vst, Est Level III 15:51:15 [employer]ORTS RECRUITER Brandy Huston Marylu, DO, FACP CPT-72983 Ofc Vst, Est Level IV 13:53:20 CDT Brandy Marlyn Huston Marylu, DO, FACP CPT-40864 Ofc Vst, Est Level IV 13:48:08 CDT Brandy Marlyn Huston Marylu, DO, FACP CPT-54887 Ofc Vst, Est Level IV 11:35:33 [employer]ORTS RECRUITER Brandy Huston Marylu, DO, FACP CPT-85837 Ofc Vst, New Level IV 14:26:52 [employer]ORTS RECRUITER Brandy Marlyn Huston Marylu, DO, FACP CPT-28303 Ofc Vst, Est Level IV 10:18:50 CDT Brandytejinder Huston Marylu, DO, FACP CPT-67601 Ofc Vst, Est Level IV 11:04:40 CDT Brandytejinder Huston Marylu, DO, FACP CPT-28151 Ofc Vst, Est Level IV 09:58:36 SPORTS RECRUITER Brandy Huston Marylu, DO, FACP CPT-26827 Office Consult, Level IV 12:01:33 [employer]ORTS RECRUITER Brandy Huston Marylu, DO, FACP CPT-87992 Ofc Vst, Est Level IV 11:53:36 CDT Brandy Huston Marylu, DO, FACP CPT-58283 Ofc Vst, Est Level IV 14:23:33 CDT Brandy Marlyn Marylu [facility] CPT-53962 Ofc Vst, Est Level IV 15:40:31 CDT Brandy Marlyn Marylu [place] [facility] CPT-11591 Ofc Vst, Est Level V 14:39:00 CDT [facility] Marlyn Velardener [place] [facility] CPT-93216 Ofc Vst, Est Level IV 11:56:16 CDT Brandytejinder Valero Brandy Valero, DO, FACP CPT-49789 Ofc Vst, Est Level IV 13:26:19 [employer]ORTS RECRUITER Brandytejinder Velardeshane Valero, DO, FACP CPT-30073 Ofc Vst, Est Level IV 15:50:15 CDT Brandy Marlyn Marylu Valero, DO, FACP CPT-80995 Ofc Vst, Est Level IV 09:48:02 CDT Brandytejinder Cline Marylu Valero, DO, FACP CPT-29187 Ofc Vst, Est Level IV 09:41:32 CDT Brandy Marlyn Valero [facility] [place] CPT-62936 Ofc Vst, Est Level IV 11:54:23 SPORTS RECRUITER Brandytejinder Valero [facility] [place] CPT-64820 Ofc Vst, Est Level IV 16:28:13 SPORTS RECRUITER Brandytejinder Valero [facility] [place] CPT-53897 Ofc Vst, Est Level IV 12:52:20 SPORTS RECRUITER Brandy Valero [facility] [place] CPT-29486 Ofc Vst, Est Level IV 17:48:58 CDT [facility] Marlynsamm Valero [facility] [place] CPT-20378 Ofc Vst, New Level IV 11:59:00 CDT [facility] Marlyn Valero [facility] [place] Procedures Code Procedure Name Date Entry Date Standard Description CPT-G0439 Medicare Annual Wellness Visit 16:56:34 CDT CPT-G8445 E-Prescribing Not sent due to no medication given 14:20: 40 CDT CPT-G8445 E-Prescribing Not sent due to no medication given 16:19: 53 [employer]ORTS RECRUITER CPT-G8445 E-Prescribing Not sent due to no medication given 17:14: 55 CDT CPT-G0438 Medicare Annual Wellness Visit Initial 17:14:55 CDT CPT-G8446 E-Prescribing not done due to controlled substance 15:17 :38 CDT CPT-G8445 E-Prescribing Not sent due to no medication given 15:51: 15 [employer] RECRUITER CPT-16151 Administration of 1st dose vaccine 09:58:36 [employer]OR[employer] RECRUITER CPT-67463 Injection, Pneumovax 09:58:36 [employer]ORTS RECRUITER CPT-76640 Cryopathy Skin 17:48:58 CDT
[2017-05-14] MEDS ORDERED: LACTATED RINGERS 1,000 ML IV STA (12:14)
--- OUTSIDE RECORDS SUMMARY | 2017-05-14 12:14 | XMS REPORT | Clinical Summary ---
Author Author User, KEYANA Organization [facility] [place] Address Unknown Phone Unavailable Allergies, Adverse Reactions, [...] MG TAB 1 PO daily LEVOTHYROXINE SODIUM 10652324170 Active Brandy Valero MOBIC 15 MG TABS 1 PO daily. MELOXICAM 11400237091 No Longer Active Brandy Valero HYDROCODONE-ACETAMINOPHEN 5-325 MG TABS 1 PO BID prn. HYDROCODONE- ACETAMINOPHEN 68998272345 Active Brandy Valero LORTAB 5/325 MG 1 to 2 PO Q6hrs prn LORTAB 5/325 MG No Longer Active Livier Rose ACCU-CHEK MULTICLIX LANCETS MISC Test BS QID DX: Diabetes 11/18 LANCETS 81813060325 No Longer Active Brandy Valero ONE TOUCH ULTRA TEST SRIPS Test BS QID DX: Diabetes ONE TOUCH ULTRA TEST SRIPS No Longer Active Brandy Marlyn Valero ZOCOR 20 MG TAB 1 PO daily SIMVASTATIN 33031889024 Active Liviervalencia Rose LASIX 40 MG TAB 1 PO daily as directed FUROSEMIDE 49765501626 Active Brandy Marlyn Valero LOFIBRA 54 MG TABS 1 PO daily FENOFIBRATE 52873223062 Active Livier Myricktis ZOSTAVAX 13183 UNT/0.65ML SOLR 1 injection once to prevent Shingles ZOSTER VACCINE LIVE 45133824593 No Longer Active Brandy Marlyn Valero LOVAZA 1 GM CAPS 1 po QID [id number] ETHYL ESTERS 85086769462 Active Brandy Marlyn Valero ACCUPRIL 20 MG TABS 1 po bid QUINAPRIL HCL 64735554101 No Longer Active Brandy Marlyn Valero TOPAMAX 100 MG TABS 1 po QHS TOPIRAMATE 29755102666 Active Brandy Marlyn Valero TOPAMAX 50 MG TABS 1 po at HS along with 100 mg. to total 150 mg TOPIRAMATE 92379970066 No Longer Active Brandytejinder Valero VITAMIN D 1000 UNIT CAPS 1 po daily CHOLECALCIFEROL 35692841211 Active Brandy Marlyn Valero LASIX 20 MG TABS 1 PO daily FUROSEMIDE 75560715286 No Longer Active Brandy Marlyn Valero VIAGRA 50 MG TABS 1 PO as directed SILDENAFIL CITRATE 54617610037 No Longer Active Brandy Marlyn Valero ECOTRIN 325 MG TBEC 1 po daily ASPIRIN 29267465993 No Longer Active Brandy Marlyn Valero CARDURA 4 MG TABS 1 PO daily DOXAZOSIN MESYLATE 12883990058 Active Livier Rose DOXAZOSIN MESYLATE 4 MG TABS 1 po at hs DOXAZOSIN MESYLATE 22960450719 No Longer Active Brandy Marlyn Valero GLUCOPHAGE 500 MG TABS 1 po BID METFORMIN HCL 53338047100 No Longer Active Brandy Valero LORTAB 5 5-500 MG TABS 1 to 2 PO Q6hrs prn ACETAMINOPHEN- HYDROCODONE 64409239602 No Longer Active Livier Rose NORVASC 5 MG TAB 1 PO QD AMLODIPINE BESYLATE 87288784217 Active Brandytejinder Valero MADHAV-D 12 HOUR 60-120 MG TB12 1 PO BID prn sinus congestion FEXOFENADINE-PSEUDOEPHEDRINE 43595843621 No Longer Active Brandytejinder Valero LORTAB 5 5-500 MG TABS 1 to 2 PO Q6hrs prn ACETAMINOPHEN- HYDROCODONE 47230449240 No Longer Active Brandytejinder Valero AVANDIA 2 MG TABS 1 po BID ROSIGLITAZONE MALEATE 56445980053 No Longer Active Brandy Valero QUINAPRIL HCL 40 MG TABS 1 po BID QUINAPRIL HCL 44873131385 No Longer Active Brandytejinder Valero ROBITUSSIN A-C 10-100 MG/5ML SYRUP 5cc PO Q 4-6 hr prn ROBITUSSIN A-C 10-100 MG/5ML SYRUP 50397783205 No Longer Active Livier Rose ACCU-CHEK MAXINE TEST SRIPS Test BS QID DX: Diabetes ACCU- CHEK MAXINE TEST SRIPS No Longer Active Livier Rose CIALIS 20 MG TABS 1 PO before sexual activity TADALAFIL 37868045485 No Longer Active Brandy Valero HUMALOG 100 U/ML SOLN 1 unit/hr basal and 25 units before meals INSULIN LISPRO (HUMAN) 46040276502 Active Livier Rose ASPIRIN 81 MG TBEC 2 po daily ASPIRIN 85034945654 Active Brandytejinder Valero VYTORIN 10-20 MG TABS 1 po daily EZETIMIBE-SIMVASTATIN 44730034639 No Longer Active Philip Nena FISH OIL 1000 MG CAPS 3 po daily OMEGA-3 FATTY ACIDS 16891030781 No Longer Active Brandy Valero VITAMIN E 400 IU CAPS 1 po daily VITAMIN E 73297286344 Active Brandy Valero MULTIVITAMINS TABS 1 po daily MULTIPLE VITAMIN 20593017395 Active Brandy Valero HYZAAR 100-25 MG TABS 1 po daily LOSARTAN POTASSIUM-HCTZ 74392726162 Active Livier Rose LIPITOR 20 MG TABS 1 po daily ATORVASTATIN CALCIUM 93262381006 No Longer Active Liviervalencia Rose ACTOS 30 MG TABS 1 po daily PIOGLITAZONE HCL 62684948880 Active Livier Myricktis Immunizations Vaccine Administration Date [...] mg/dL Encounters Code Encounter Date Provider Facility CPT-15960 Ofc Vst, Est Level III 21:05:26 CDT Brandy Valero DO, FACP CPT-67158 Ofc Vst, Est Level III 16:08:34 CDT Brandy Valero DO, FACP CPT-30011 Ofc Vst, Est Level III 14:20:40 CDT Brandy Valero DO, FACP CPT-75926 Ofc Vst, Est Level III 16:19:53 [employer] DATA HADOOP DEVELOPER Brandy Valero DO, FACP CPT-93363 Ofc Vst, Est Level III 15:17:38 CDT Brandytejinder Huston Marylu, DO, FACP CPT-91766 Ofc Vst, Est Level III 15:51:15 [employer] DATA HADOOP DEVELOPER Brandy Huston Marylu, DO, FACP CPT-67648 Ofc Vst, Est Level IV 13:53:20 CDT Brandy Marlyn Huston Marylu, DO, FACP CPT-95661 Ofc Vst, Est Level IV 13:48:08 CDT Brandy Marlyn Huston Marylu, DO, FACP CPT-36110 Ofc Vst, Est Level IV 11:35:33 [employer] DATA HADOOP DEVELOPER Brandy Huston Marylu, DO, FACP CPT-35842 Ofc Vst, New Level IV 14:26:52 [employer] DATA HADOOP DEVELOPER Brandy Marlyn Huston Marylu, DO, FACP CPT-36932 Ofc Vst, Est Level IV 10:18:50 CDT Brandytejinder Huston Mayrlu, DO, FACP CPT-19042 Ofc Vst, Est Level IV 11:04:40 CDT Brandytejinder Huston Marylu, DO, FACP CPT-16405 Ofc Vst, Est Level IV 09:58:36 [employer] DATA HADOOP DEVELOPER Brandy Huston Marylu, DO, FACP CPT-83407 Office Consult, Level IV 12:01:33 [employer] DATA HADOOP DEVELOPER Brandy Huston Marylu, DO, FACP CPT-37344 Ofc Vst, Est Level IV 11:53:36 CDT Brandy Huston Marylu, DO, FACP CPT-98996 Ofc Vst, Est Level IV 14:23:33 CDT Brandy Marlyn Marylu [facility] CPT-91142 Ofc Vst, Est Level IV 15:40:31 CDT Brandy Marlyn Marylu [facility] CPT-85528 Ofc Vst, Est Level V 14:39:00 CDT [facility] Marlyn Velardener [facility] CPT-92756 Ofc Vst, Est Level IV 11:56:16 CDT Brandytejinder Valero Brandy Valero, DO, FACP CPT-38337 Ofc Vst, Est Level IV 13:26:19 [employer] DATA HADOOP DEVELOPER Brandytejinder Velardeshane Valero, DO, FACP CPT-25243 Ofc Vst, Est Level IV 15:50:15 CDT Brandy Marlyn Marylu Valero, DO, FACP CPT-29303 Ofc Vst, Est Level IV 09:48:02 CDT Brandytejinder Cline Marylu Valero, DO, FACP CPT-99258 Ofc Vst, Est Level IV 09:41:32 CDT Brandy Marlyn Valero [facility] [place] CPT-39935 Ofc Vst, Est Level IV 11:54:23 [employer] DATA HADOOP DEVELOPER Brandytejinder Valero [facility] [place] CPT-59116 Ofc Vst, Est Level IV 16:28:13 [employer] DATA HADOOP DEVELOPER Brandytejinder Valero [facility] [place] CPT-30047 Ofc Vst, Est Level IV 12:52:20 [employer] DATA HADOOP DEVELOPER Brandy Valero [facility] [place] CPT-86615 Ofc Vst, Est Level IV 17:48:58 CDT [facility] Marlynsamm Valero [facility] [place] CPT-52929 Ofc Vst, New Level IV 11:59:00 CDT [facility] Marlyn Valero [facility] [place] Procedures Code Procedure Name Date Entry Date Standard Description CPT-G0439 Medicare Annual Wellness Visit 16:56:34 CDT CPT-G8445 E-Prescribing Not sent due to no medication given 14:20: 40 CDT CPT-G8445 E-Prescribing Not sent due to no medication given 16:19: 53 [employer] HADOOP DEVELOPER CPT-G8445 E-Prescribing Not sent due to no medication given 17:14: 55 CDT CPT-G0438 Medicare Annual Wellness Visit Initial 17:14:55 CDT CPT-G8446 E-Prescribing not done due to controlled substance 15:17 :38 CDT CPT-G8445 E-Prescribing Not sent due to no medication given 15:51: 15 [employer] HADOOP DEVELOPER CPT-21764 Administration of 1st dose vaccine 09:58:36 [employer] DATA HADOOP DEVELOPER CPT-15465 Injection, Pneumovax 09:58:36 [employer] DATA HADOOP DEVELOPER CPT-84182 Cryopathy Skin 17:48:58 CDT
--- OUTSIDE RECORDS SUMMARY | 2017-05-14 12:14 | XMS REPORT | Clinical Summary ---
Author Author User, [employer] Organization [facility] [place] Address Unknown Phone Unavailable Allergies, Adverse Reactions, [...] MEQ CR-CAPS 1 po daily POTASSIUM CHLORIDE 30924331209 Active Brandy Valero SYNTHROID 0.175 MG TAB 1 PO daily LEVOTHYROXINE SODIUM 69209185872 Active Brandy Valero MOBIC 15 MG TABS 1 PO daily. MELOXICAM 52291278505 No Longer Active Brandy Valero HYDROCODONE-ACETAMINOPHEN 5-325 MG TABS 1 PO BID prn. HYDROCODONE- ACETAMINOPHEN 89533388280 Active Brandy Valero LORTAB 5/325 MG 1 to 2 PO Q6hrs prn LORTAB 5/325 MG No Longer Active Livier Rose ACCU-CHEK MULTICLIX LANCETS MISC Test BS QID DX: Diabetes 11/18 LANCETS 13129993326 No Longer Active Brandytejinder Valero ONE TOUCH ULTRA TEST SRIPS Test BS QID DX: Diabetes ONE TOUCH ULTRA TEST SRIPS No Longer Active Brandytejinder Valero ZOCOR 20 MG TAB 1 PO daily SIMVASTATIN 16563248889 Active Livier Myricktis LASIX 40 MG TAB 1 PO daily as directed FUROSEMIDE 06815341509 Active Brandy Marlyn Valero LOFIBRA 54 MG TABS 1 PO daily FENOFIBRATE 83184652724 Active Livier Rose ZOSTAVAX 28977 UNT/0.65ML SOLR 1 injection once to prevent Shingles ZOSTER VACCINE LIVE 54927558148 No Longer Active Brandy Marlyn Valero LOVAZA 1 GM CAPS 1 po QID [id number] ETHYL ESTERS 39286919105 Active Brandy Marlyn Valero ACCUPRIL 20 MG TABS 1 po bid QUINAPRIL HCL 12977355194 No Longer Active Brandy Marlyn Valero TOPAMAX 100 MG TABS 1 po QHS TOPIRAMATE 80960766597 Active Brandy Marlyn Valero TOPAMAX 50 MG TABS 1 po at HS along with 100 mg. to total 150 mg TOPIRAMATE 42115353181 No Longer Active Brandytejinder Valero VITAMIN D 1000 UNIT CAPS 1 po daily CHOLECALCIFEROL 37241314324 Active Brandytejinder Valero LASIX 20 MG TABS 1 PO daily FUROSEMIDE 57748347647 No Longer Active Brandy Marlyn Valero VIAGRA 50 MG TABS 1 PO as directed SILDENAFIL CITRATE 87064706004 No Longer Active Brandy Marlyn Valero ECOTRIN 325 MG TBEC 1 po daily ASPIRIN 71873149053 No Longer Active Brandy Marlyn Valero CARDURA 4 MG TABS 1 PO daily DOXAZOSIN MESYLATE 88967887205 Active Livier Rose DOXAZOSIN MESYLATE 4 MG TABS 1 po at hs DOXAZOSIN MESYLATE 64496139307 No Longer Active Brandy Valero GLUCOPHAGE 500 MG TABS 1 po BID METFORMIN HCL 56978452376 No Longer Active Brandytejinder Valero LORTAB 5 5-500 MG TABS 1 to 2 PO Q6hrs prn ACETAMINOPHEN- HYDROCODONE 78044205575 No Longer Active Livier Rose NORVASC 5 MG TAB 1 PO QD AMLODIPINE BESYLATE 98253175672 Active Brandytejinder Valero MADHAV-D 12 HOUR 60-120 MG TB12 1 PO BID prn sinus congestion FEXOFENADINE-PSEUDOEPHEDRINE 30344605792 No Longer Active Brandytejinder Valero LORTAB 5 5-500 MG TABS 1 to 2 PO Q6hrs prn ACETAMINOPHEN- HYDROCODONE 49443383170 No Longer Active Brandy Valero AVANDIA 2 MG TABS 1 po BID ROSIGLITAZONE MALEATE 81498354850 No Longer Active Brandytejinder Valero QUINAPRIL HCL 40 MG TABS 1 po BID QUINAPRIL HCL 20810402256 No Longer Active Brandy Valero ROBITUSSIN A-C 10-100 MG/5ML SYRUP 5cc PO Q 4-6 hr prn ROBITUSSIN A-C 10-100 MG/5ML SYRUP 95936499884 No Longer Active Livier Rose ACCU-CHEK MAXINE TEST SRIPS Test BS QID DX: Diabetes ACCU- CHEK MAXINE TEST SRIPS No Longer Active Livier Rose CIALIS 20 MG TABS 1 PO before sexual activity TADALAFIL 69599731173 No Longer Active Brandy Valero HUMALOG 100 U/ML SOLN 1 unit/hr basal and 25 units before meals INSULIN LISPRO (HUMAN) 15852649860 Active Livier Rose ASPIRIN 81 MG TBEC 2 po daily ASPIRIN 34143738586 Active Brandytejinder Valero VYTORIN 10-20 MG TABS 1 po daily EZETIMIBE-SIMVASTATIN 84993188670 No Longer Active Philip Barrett FISH OIL 1000 MG CAPS 3 po daily OMEGA-3 FATTY ACIDS 01881693393 No Longer Active Brandy Valero VITAMIN E 400 IU CAPS 1 po daily VITAMIN E 60790876959 Active Brandy Valero MULTIVITAMINS TABS 1 po daily MULTIPLE VITAMIN 19937193198 Active Brandy Valero HYZAAR 100-25 MG TABS 1 po daily LOSARTAN POTASSIUM-HCTZ 67858642717 Active Liviervalencia Rose LIPITOR 20 MG TABS 1 po daily ATORVASTATIN CALCIUM 40012575710 No Longer Active Livier Rose ACTOS 30 MG TABS 1 po daily PIOGLITAZONE HCL 08429391277 Active Livier Rose Immunizations Vaccine Administration Date [...] E&M - [id number] [id number] [lb_av] Weight Measured Diagnostic Results Date Name Value Unit Range Description Clinical Lists Update: CMP,CHOL,TRIG,TSH,FREE T4,HGA1C - Chemistry Estimated Glomerular Filtration Rate (calc) 53 mL/min/1.73m2 albumin, serum 4.2 g/dL anion gap, serum 11 sodium, serum 139 mmol/L triglyceride, serum, fasting 139 mg/dL bilirubin, serum, total 0.5 mg/dL alanine aminotransferase (SGPT), serum 13 U/L aspartate aminotransferase (SGOT), serum 18 U/L protein, total, serum 6.7 g/dL potassium, serum 3.3 mmol/L thyroid stimulating hormone, serum 1.68 u[iU]/mL hemoglobin A1C, blood, as % of total hemoglobin 6.0 % thyroxine, serum, free 1.27 ng/dL creatinine, serum 1.4 mg/dL carbon dioxide, venous blood 27.0 mmol/L cholesterol, serum 143 mg/dL chloride, serum 104 mmol/L calcium, serum 9.6 mg/dL urea nitrogen, blood 30 mg/dL alkaline phosphatase, serum 30 U/L glucose, plasma fasting 74 mg/dL Clinical Lists Update: CMP,FLP,TSH,FREE T4,HGA1C - Chemistry Estimated Glomerular Filtration Rate (calc) 43 mL/min/1.73m2 glucose, plasma fasting 80 mg/dL cholesterol/HDL ratio, serum, percent 2.9 anion gap, serum 14 sodium, serum 141 mmol/L triglyceride, serum, fasting 130 mg/dL bilirubin, serum, total 0.6 mg/dL alanine aminotransferase (SGPT), serum 13 U/L aspartate aminotransferase (SGOT), serum 18 U/L protein, total, serum 6.8 g/dL potassium, serum 3.5 mmol/L LDL cholesterol, serum 68 mg/dL thyroid stimulating hormone, serum 8.71 u[iU]/mL hemoglobin A1C, blood, as % of total hemoglobin 5.9 % HDL cholesterol, serum 49.0 mg/dL thyroxine, serum, free 0.95 ng/dL creatinine, serum 1.7 mg/dL carbon dioxide, venous blood 28.0 mmol/L cholesterol, serum 143 mg/dL chloride, serum 103 mmol/L calcium, serum 10.1 mg/dL urea nitrogen, blood 25 mg/dL alkaline phosphatase, serum 30 U/L albumin, serum 4.2 g/dL Clinical Lists Update: CMP,TSH,Free T4,HgA1c,Microalbumin - Chemistry [...] mg/dL Encounters Code Encounter Date Provider Facility CPT-19567 Ofc Vst, Est Level III 21:06:44 CDT Brandy Valero DO, FACP CPT-77181 Ofc Vst, Est Level III 21:05:26 CDT Brandy Valero DO, FACP CPT-54649 Ofc Vst, Est Level III 16:08:34 CDT Brandy Valero DO, FACP CPT-87734 Ofc Vst, Est Level III 14:20:40 CDT Brandy Valero DO, FACP CPT-40181 Ofc Vst, Est Level III 16:19:53 [facility] Brandy Valero DO, FACP CPT-88743 Ofc Vst, Est Level III 15:17:38 CDT Brandy Marlyn Valero Brandy S Valero, DO, FACP CPT-33687 Ofc Vst, Est Level III 15:51:15 [facility] [place] [facility] Brandy Huston Marylu, DO, FACP CPT-70580 Ofc Vst, Est Level IV 13:53:20 CDT Brandy Huston Marylu, DO, FACP CPT-18470 Ofc Vst, Est Level IV 13:48:08 CDT Brandy Marlyn Huston Marylu, DO, FACP CPT-10966 Ofc Vst, Est Level IV 11:35:33 [facility] [place] [facility] Brandy Huston Marylu, DO, FACP CPT-81244 Ofc Vst, New Level IV 14:26:52 [facility] [place] [facility] Brandy Huston Marylu, DO, FACP CPT-33735 Ofc Vst, Est Level IV 10:18:50 CDT Brandytejinder Huston Marylu, DO, FACP CPT-42649 Ofc Vst, Est Level IV 11:04:40 CDT Brandy Huston Marylu, DO, FACP CPT-88875 Ofc Vst, Est Level IV 09:58:36 [facility] [place] [facility] Brandy Huston Marylu, DO, FACP CPT-31753 Office Consult, Level IV 12:01:33 [facility] [place] [facility] Brandy Huston Marylu, DO, FACP CPT-66427 Ofc Vst, Est Level IV 11:53:36 CDT Brandy Huston Marylu, DO, FACP CPT-21776 Ofc Vst, Est Level IV 14:23:33 CDT Brandytejinder Cline Marylu [facility] CPT-06017 Ofc Vst, Est Level IV 15:40:31 CDT Brandy Marlyn Marylu [facility] CPT-91028 Ofc Vst, Est Level V 14:39:00 CDT Brandy Valero [facility] CPT-13140 Ofc Vst, Est Level IV 11:56:16 CDT Brandytejinder Velardeshane Valero, DO, FACP CPT-37897 Ofc Vst, Est Level IV 13:26:19 [facility] [place] [facility] Brandy Marlyn Marylu Valero, DO, FACP CPT-43789 Ofc Vst, Est Level IV 15:50:15 CDT Brandytejinder Cline Marylu Valero, DO, FACP CPT-57482 Ofc Vst, Est Level IV 09:48:02 CDT Brandy Marlyn Marylu Valero DO, FACP CPT-55309 Ofc Vst, Est Level IV 09:41:32 CDT Brandy Valero [facility] [place] CPT-64127 Ofc Vst, Est Level IV 11:54:23 [facility] [place] [facility] Brandy Valero [facility] [place] CPT-07160 Ofc Vst, Est Level IV 16:28:13 [facility] [place] [facility] Brandy Valero [facility] [place] CPT-38710 Ofc Vst, Est Level IV 12:52:20 [facility] [place] [facility] Brandy Valero [facility] [place] CPT-85567 Ofc Vst, Est Level IV 17:48:58 CDT Brandy Valero [facility] [place] CPT-93962 Ofc Vst, New Level IV 11:59:00 CDT Brandy Valero [facility] [place] Procedures Code Procedure Name Date Entry Date Standard Description CPT-G0439 Medicare Annual Wellness Visit 16:56:34 CDT CPT-G8445 E-Prescribing Not sent due to no medication given 14:20: 40 CDT CPT-G8445 E-Prescribing Not sent due to no medication given 16:19: 53 [facility] [place] [facility] CPT-G8445 E-Prescribing Not sent due to no medication given 17:14: 55 CDT CPT-G0438 Medicare Annual Wellness Visit Initial 17:14:55 CDT CPT-G8446 E-Prescribing not done due to controlled substance 15:17 :38 CDT CPT-G8445 E-Prescribing Not sent due to no medication given 15:51: 15 [facility] [place] [facility] CPT-88887 Administration of 1st dose vaccine 09:58:36 [facility] [place] [facility] CPT-38827 Injection, Pneumovax 09:58:36 [facility] [place] [facility] CPT-71579 Cryopathy Skin 17:48:58 CDT
--- OUTSIDE RECORDS SUMMARY | 2017-05-14 12:15 | XMS REPORT | Clinical Summary ---
Author Author User, [employer] Organization [facility] [place] Address Unknown Phone Unavailable Allergies, Adverse Reactions, [...] MG TAB 1 PO daily LEVOTHYROXINE SODIUM 11923330657 Active Brandy Valero MOBIC 15 MG TABS 1 PO daily. MELOXICAM 84922798787 No Longer Active Brandy Valero HYDROCODONE-ACETAMINOPHEN 5-325 MG TABS 1 PO BID prn. HYDROCODONE- ACETAMINOPHEN 43250345135 Active Livier Rose LORTAB 5/325 MG 1 to 2 PO Q6hrs prn LORTAB 5/325 MG No Longer Active Livier Rose ACCU-CHEK MULTICLIX LANCETS MISC Test BS QID DX: Diabetes 11/18 LANCETS 17735806800 No Longer Active Brandy Valero ONE TOUCH ULTRA TEST SRIPS Test BS QID DX: Diabetes ONE TOUCH ULTRA TEST SRIPS No Longer Active Brandytejinder Valero ZOCOR 20 MG TAB 1 PO daily SIMVASTATIN 29684657806 Active Liviervalencia Rose LASIX 40 MG TAB 1 PO daily as directed FUROSEMIDE 58806290142 Active Brandy Marlyn Valero LOFIBRA 54 MG TABS 1 PO daily FENOFIBRATE 14903130701 Active Livier Rose ZOSTAVAX 96635 UNT/0.65ML SOLR 1 injection once to prevent Shingles ZOSTER VACCINE LIVE 17146375661 No Longer Active Brandy Marlyn Valero LOVAZA 1 GM CAPS 1 po QID [id number] ETHYL ESTERS 38525969736 Active Brandy Marlyn Valero ACCUPRIL 20 MG TABS 1 po bid QUINAPRIL HCL 44680360550 No Longer Active Brandy Marlyn Valero TOPAMAX 100 MG TABS 1 po QHS TOPIRAMATE 57769459774 Active Brandy Marlyn Valero TOPAMAX 50 MG TABS 1 po at HS along with 100 mg. to total 150 mg TOPIRAMATE 92231788135 No Longer Active Brandytejinder Valeor VITAMIN D 1000 UNIT CAPS 1 po daily CHOLECALCIFEROL 99613989486 Active Brandytejinder Valero LASIX 20 MG TABS 1 PO daily FUROSEMIDE 82107566853 No Longer Active Brandy Marlyn Valero VIAGRA 50 MG TABS 1 PO as directed SILDENAFIL CITRATE 57341361725 No Longer Active Brandy Marlyn Valero ECOTRIN 325 MG TBEC 1 po daily ASPIRIN 49322718191 No Longer Active Brandy Marlyn Valero CARDURA 4 MG TABS 1 PO daily DOXAZOSIN MESYLATE 62087013663 Active Livier Rose DOXAZOSIN MESYLATE 4 MG TABS 1 po at hs DOXAZOSIN MESYLATE 05658298871 No Longer Active Brandy Marlyn Valero GLUCOPHAGE 500 MG TABS 1 po BID METFORMIN HCL 96202671802 No Longer Active Brandy Valero LORTAB 5 5-500 MG TABS 1 to 2 PO Q6hrs prn ACETAMINOPHEN- HYDROCODONE 90943282368 No Longer Active Livier Rose NORVASC 5 MG TAB 1 PO QD AMLODIPINE BESYLATE 65080631265 Active Brandytejinder Valero MADHAV-D 12 HOUR 60-120 MG TB12 1 PO BID prn sinus congestion FEXOFENADINE-PSEUDOEPHEDRINE 19393970047 No Longer Active Brandytejinder Valero LORTAB 5 5-500 MG TABS 1 to 2 PO Q6hrs prn ACETAMINOPHEN- HYDROCODONE 26813778047 No Longer Active Brandy Valero AVANDIA 2 MG TABS 1 po BID ROSIGLITAZONE MALEATE 39299958173 No Longer Active Brandy Valero QUINAPRIL HCL 40 MG TABS 1 po BID QUINAPRIL HCL 53344375303 No Longer Active Brandytejinder Valero ROBITUSSIN A-C 10-100 MG/5ML SYRUP 5cc PO Q 4-6 hr prn ROBITUSSIN A-C 10-100 MG/5ML SYRUP 71051682979 No Longer Active Livier Rose ACCU-CHEK MAXINE TEST SRIPS Test BS QID DX: Diabetes ACCU- CHEK MAXINE TEST SRIPS No Longer Active Livier Rose CIALIS 20 MG TABS 1 PO before sexual activity TADALAFIL 97433475226 No Longer Active Brandy Valero HUMALOG 100 U/ML SOLN 1 unit/hr basal and 25 units before meals INSULIN LISPRO (HUMAN) 80300801629 Active Livier Rose ASPIRIN 81 MG TBEC 2 po daily ASPIRIN 54785866937 Active Brandytejinder Valero VYTORIN 10-20 MG TABS 1 po daily EZETIMIBE-SIMVASTATIN 23334288511 No Longer Active Philip Barrett FISH OIL 1000 MG CAPS 3 po daily OMEGA-3 FATTY ACIDS 30038584462 No Longer Active Brandy Valero VITAMIN E 400 IU CAPS 1 po daily VITAMIN E 10317766706 Active Brandy Valero MULTIVITAMINS TABS 1 po daily MULTIPLE VITAMIN 70014939381 Active Brandy Valero HYZAAR 100-25 MG TABS 1 po daily LOSARTAN POTASSIUM-HCTZ 59853315950 Active Livier Myricktis LIPITOR 20 MG TABS 1 po daily ATORVASTATIN CALCIUM 65541778831 No Longer Active Livier Rose ACTOS 30 MG TABS 1 po daily PIOGLITAZONE HCL 47245303800 Active Livier Rose Immunizations Vaccine Administration Date [...] Clinical Lists Update: CBC,CMP,Chol,Trig,TSH,Free T4,HgA1c - Chemistry albumin, serum 4.0 g/dL Estimated Glomerular Filtration Rate (calc) 48 mL/min/1.73m2 urea nitrogen, blood 25 mg/dL calcium, serum 9.6 mg/dL chloride, serum 104 mmol/L carbon dioxide, venous blood 26.0 mmol/L creatinine, serum 1.6 mg/dL thyroxine, serum, free 1.28 ng/dL hemoglobin A1C, blood, as % of total hemoglobin 6.5 % thyroid stimulating hormone, serum 1.78 u[iU]/mL potassium, serum 3.6 mmol/L protein, total, serum 6.7 g/dL aspartate aminotransferase (SGOT), serum 15 U/L alanine aminotransferase (SGPT), serum 15 U/L bilirubin, serum, total 0.6 mg/dL sodium, serum 139 mmol/L anion gap, serum 13 glucose, plasma fasting 84 mg/dL alkaline phosphatase, serum 41 U/L Clinical Lists Update: CBC,CMP,Chol,Trig,TSH,Free T4,HgA1c - Hematology hemoglobin, blood 13.3 g/dL hematocrit, blood 43 % platelet count 201 10*3/mm3 erythrocyte (RBC) count 4.63 10*6/mm3 leukocyte count, blood 6.0 10*3/mm3 mean corpuscular volume, RBC 92 fL red blood cell distribution width 16.5 % Clinical Lists Update: CMP,FLP,TSH,FREE T4,HGA1C - Chemistry creatinine, serum 1.7 mg/dL chloride, serum 103 mmol/L HDL cholesterol, serum 49.0 mg/dL hemoglobin A1C, [...] Estimated Glomerular Filtration Rate (calc) 43 mL/min/1.73m2 carbon dioxide, venous blood 28.0 mmol/L cholesterol, serum 143 mg/dL albumin, serum 4.2 g/dL alkaline phosphatase, serum 30 U/L urea nitrogen, blood 25 mg/dL calcium, serum 10.1 mg/dL thyroxine, serum, free 0.95 ng/dL Clinical Lists Update: CMP,TSH,Free T4,HgA1c,Microalbumin - Chemistry [...] mg/dL Encounters Code Encounter Date Provider Facility CPT-64991 Ofc Vst, Est Level III 21:05:26 CDT Brandy Valero DO, FACP CPT-65231 Ofc Vst, Est Level III 16:08:34 CDT Brandy Valero DO, FACP CPT-75371 Ofc Vst, Est Level III 14:20:40 CDT Brandy Valero DO, FACP CPT-55861 Ofc Vst, Est Level III 16:19:53 [facility] Brandy Valero DO, FACP CPT-79418 Ofc Vst, Est Level III 15:17:38 CDT Brandytejinder uHston Marylu, DO, FACP CPT-14331 Ofc Vst, Est Level III 15:51:15 [facility] Brandy Huston Valero, DO, FACP CPT-63602 Ofc Vst, Est Level IV 13:53:20 CDT Brandy Marlyn Huston Marylu, DO, FACP CPT-20355 Ofc Vst, Est Level IV 13:48:08 CDT Brandy Marlyn Huston Marylu, DO, FACP CPT-78797 Ofc Vst, Est Level IV 11:35:33 [facility] Brandy Huston Marylu, DO, FACP CPT-09140 Ofc Vst, New Level IV 14:26:52 [facility] Brandy Marlyn Huston Marylu, DO, FACP CPT-47705 Ofc Vst, Est Level IV 10:18:50 CDT Brandy Marlyn Huston Marylu, DO, FACP CPT-86001 Ofc Vst, Est Level IV 11:04:40 CDT Brandy Marlyn Huston Marylu, DO, FACP CPT-74295 Ofc Vst, Est Level IV 09:58:36 [facility] Brandy Huston Marylu, DO, FACP CPT-74775 Office Consult, Level IV 12:01:33 [facility] Brandy Huston Marylu, DO, FACP CPT-42696 Ofc Vst, Est Level IV 11:53:36 CDT Brandy Marlyn Huston Marylu, DO, FACP CPT-45176 Ofc Vst, Est Level IV 14:23:33 CDT Brandy Marlyn Marylu [facility] CPT-64029 Ofc Vst, Est Level IV 15:40:31 CDT Brandy Marlyn Marylu [facility] CPT-42237 Ofc Vst, Est Level V 14:39:00 CDT Brandy Cline Valero [facility] CPT-14652 Ofc Vst, Est Level IV 11:56:16 CDT Brandy Marlyn Marylu Valero, DO, FACP CPT-06083 Ofc Vst, Est Level IV 13:26:19 [facility] Brandytejinder Valero, DO, FACP CPT-87973 Ofc Vst, Est Level IV 15:50:15 CDT Brandy Marlynsamm Valero, DO, FACP CPT-29475 Ofc Vst, Est Level IV 09:48:02 CDT Brandytejinder Valero DO, FACP CPT-90404 Ofc Vst, Est Level IV 09:41:32 CDT Brandy Valero [facility] [place] CPT-47422 Ofc Vst, Est Level IV 11:54:23 [facility] Brandy Valero [facility] [place] CPT-28369 Ofc Vst, Est Level IV 16:28:13 [facility] Brandy Valero [facility] [place] CPT-62587 Ofc Vst, Est Level IV 12:52:20 [facility] Brandy Valero [facility] [place] CPT-12135 Ofc Vst, Est Level IV 17:48:58 CDT Brandy Valero [facility] [place] CPT-92728 Ofc Vst, New Level IV 11:59:00 CDT Brandytejinder Valero [facility] [place] Procedures Code Procedure Name Date Entry Date Standard Description CPT-G0439 Medicare Annual Wellness Visit 16:56:34 CDT CPT-G8445 E-Prescribing Not sent due to no medication given 14:20: 40 CDT CPT-G8445 E-Prescribing Not sent due to no medication given 16:19: 53 [facility] CPT-G8445 E-Prescribing Not sent due to no medication given 17:14: 55 CDT CPT-G0438 Medicare Annual Wellness Visit Initial 17:14:55 CDT CPT-G8446 E-Prescribing not done due to controlled substance 15:17 :38 CDT CPT-G8445 E-Prescribing Not sent due to no medication given 15:51: 15 [facility] CPT-10673 Administration of 1st dose vaccine 09:58:36 [facility] CPT-25795 Injection, Pneumovax 09:58:36 [facility] CPT-45390 Cryopathy Skin 17:48:58 CDT
--- OUTSIDE RECORDS SUMMARY | 2017-05-14 12:15 | XMS REPORT | Clinical Summary ---
Author Author User, KEYANA Organization [facility] [place] Address Unknown Phone Unavailable Allergies, Adverse Reactions, [...] MEQ CR-CAPS 1 po daily POTASSIUM CHLORIDE 73433706345 Active Brandy Valero SYNTHROID 0.175 MG TAB 1 PO daily LEVOTHYROXINE SODIUM 08715552744 Active Brandy Valero MOBIC 15 MG TABS 1 PO daily. MELOXICAM 70585034492 No Longer Active Brandy Valero HYDROCODONE-ACETAMINOPHEN 5-325 MG TABS 1 PO BID prn. HYDROCODONE- ACETAMINOPHEN 57381783736 Active Brandy Valero LORTAB 5/325 MG 1 to 2 PO Q6hrs prn LORTAB 5/325 MG No Longer Active Livier Rose ACCU-CHEK MULTICLIX LANCETS MISC Test BS QID DX: Diabetes 11/18 LANCETS 47001060541 No Longer Active Brandytejinder Valero ONE TOUCH ULTRA TEST SRIPS Test BS QID DX: Diabetes ONE TOUCH ULTRA TEST SRIPS No Longer Active Brandy Marlyn Valero ZOCOR 20 MG TAB 1 PO daily SIMVASTATIN 05558233146 Active Livier Rose LASIX 40 MG TAB 1 PO daily as directed FUROSEMIDE 80489131884 Active Brandy Marlyn Valero LOFIBRA 54 MG TABS 1 PO daily FENOFIBRATE 54913500659 Active Livier Rose ZOSTAVAX 60673 UNT/0.65ML SOLR 1 injection once to prevent Shingles ZOSTER VACCINE LIVE 23102426047 No Longer Active Brandy Marlyn Valero LOVAZA 1 GM CAPS 1 po QID [id number] ETHYL ESTERS 21217711709 Active Brandy Marlyn Valero ACCUPRIL 20 MG TABS 1 po bid QUINAPRIL HCL 28725525631 No Longer Active Brandy Marlyn Valero TOPAMAX 100 MG TABS 1 po QHS TOPIRAMATE 57941381520 Active Brandy Marlyn Valero TOPAMAX 50 MG TABS 1 po at HS along with 100 mg. to total 150 mg TOPIRAMATE 15119428181 No Longer Active Brandytejinder Valero VITAMIN D 1000 UNIT CAPS 1 po daily CHOLECALCIFEROL 22182045822 Active Brandy Marlyn Valero LASIX 20 MG TABS 1 PO daily FUROSEMIDE 93540216811 No Longer Active Brandy Marlyn Valero VIAGRA 50 MG TABS 1 PO as directed SILDENAFIL CITRATE 76196199291 No Longer Active Brandy Marlyn Valero ECOTRIN 325 MG TBEC 1 po daily ASPIRIN 16069100601 No Longer Active Brandy Marlyn Valero CARDURA 4 MG TABS 1 PO daily DOXAZOSIN MESYLATE 70102662545 Active Livier Rose DOXAZOSIN MESYLATE 4 MG TABS 1 po at hs DOXAZOSIN MESYLATE 87070810888 No Longer Active Brandy Valero GLUCOPHAGE 500 MG TABS 1 po BID METFORMIN HCL 21841547688 No Longer Active Brandytejinder Valero LORTAB 5 5-500 MG TABS 1 to 2 PO Q6hrs prn ACETAMINOPHEN- HYDROCODONE 30844538661 No Longer Active Livier Rose NORVASC 5 MG TAB 1 PO QD AMLODIPINE BESYLATE 21806175617 Active Brandytejinder Valero MADHAV-D 12 HOUR 60-120 MG TB12 1 PO BID prn sinus congestion FEXOFENADINE-PSEUDOEPHEDRINE 11528500892 No Longer Active Brandytejinder Valero LORTAB 5 5-500 MG TABS 1 to 2 PO Q6hrs prn ACETAMINOPHEN- HYDROCODONE 88198573695 No Longer Active Brandy Valero AVANDIA 2 MG TABS 1 po BID ROSIGLITAZONE MALEATE 75156967018 No Longer Active Brandytejinder Valero QUINAPRIL HCL 40 MG TABS 1 po BID QUINAPRIL HCL 56431508382 No Longer Active Brandy Valero ROBITUSSIN A-C 10-100 MG/5ML SYRUP 5cc PO Q 4-6 hr prn ROBITUSSIN A-C 10-100 MG/5ML SYRUP 23317342155 No Longer Active Livier Rose ACCU-CHEK MAXINE TEST SRIPS Test BS QID DX: Diabetes ACCU- CHEK MAXINE TEST SRIPS No Longer Active Livier Rose CIALIS 20 MG TABS 1 PO before sexual activity TADALAFIL 09570034091 No Longer Active Brandy Valero HUMALOG 100 U/ML SOLN 1 unit/hr basal and 25 units before meals INSULIN LISPRO (HUMAN) 72203553445 Active Livier Rose ASPIRIN 81 MG TBEC 2 po daily ASPIRIN 29967532820 Active Brandytejinder Valero VYTORIN 10-20 MG TABS 1 po daily EZETIMIBE-SIMVASTATIN 69730004378 No Longer Active Philip Barrett FISH OIL 1000 MG CAPS 3 po daily OMEGA-3 FATTY ACIDS 91284401234 No Longer Active Brandy Valero VITAMIN E 400 IU CAPS 1 po daily VITAMIN E 55077798206 Active Brandy Valero MULTIVITAMINS TABS 1 po daily MULTIPLE VITAMIN 86808691000 Active Brandy Valero HYZAAR 100-25 MG TABS 1 po daily LOSARTAN POTASSIUM-HCTZ 84364354344 Active Liviervalencia Rsoe LIPITOR 20 MG TABS 1 po daily ATORVASTATIN CALCIUM 33244400434 No Longer Active Livier Rose ACTOS 30 MG TABS 1 po daily PIOGLITAZONE HCL 67330603237 Active Livier Rose Immunizations Vaccine Administration Date [...] Clinical Lists Update: CMP,CHOL,TRIG,TSH,FREE T4,HGA1C - Chemistry glucose, plasma fasting 74 mg/dL anion gap, serum 11 albumin, serum 4.2 g/dL alkaline phosphatase, serum 30 U/L urea nitrogen, blood 30 mg/dL calcium, serum 9.6 mg/dL chloride, serum 104 mmol/L cholesterol, serum 143 mg/dL carbon dioxide, venous blood 27.0 mmol/L creatinine, serum 1.4 mg/dL thyroxine, serum, free 1.27 ng/dL hemoglobin A1C, blood, as % of total hemoglobin 6.0 % thyroid stimulating hormone, serum 1.68 u[iU]/mL potassium, serum 3.3 mmol/L protein, total, serum 6.7 g/dL aspartate aminotransferase (SGOT), serum 18 U/L alanine aminotransferase (SGPT), serum 13 U/L bilirubin, serum, total 0.5 mg/dL triglyceride, serum, fasting 139 mg/dL sodium, serum 139 mmol/L Estimated Glomerular Filtration Rate (calc) 53 mL/min/1.73m2 Clinical Lists Update: CMP,FLP,TSH,FREE T4,HGA1C - Chemistry urea nitrogen, blood 25 mg/dL alkaline phosphatase, serum 30 U/L calcium, serum 10.1 mg/dL chloride, serum 103 [...] serum 14 cholesterol/HDL ratio, serum, percent 2.9 albumin, serum 4.2 g/dL Estimated Glomerular Filtration Rate (calc) 43 mL/min/1.73m2 glucose, plasma fasting 80 mg/dL Clinical Lists Update: CMP,TSH,Free T4,HgA1c,Microalbumin - Chemistry [...] mg/dL Encounters Code Encounter Date Provider Facility CPT-13636 Ofc Vst, Est Level III 21:06:44 CDT Brandy Valero DO, FACP CPT-63700 Ofc Vst, Est Level III 21:05:26 CDT Brandy Valero DO, FACP CPT-97557 Ofc Vst, Est Level III 16:08:34 CDT Brandy Valero DO, FACP CPT-39227 Ofc Vst, Est Level III 14:20:40 CDT Brandy Valero DO, FACP CPT-91227 Ofc Vst, Est Level III 16:19:53 DIRECTOR OF PHYSICAL EDUCATION Brandy Huston Valero, DO, FACP CPT-29471 Ofc Vst, Est Level III 15:17:38 CDT Brandytejinder Huston Valero, DO, FACP CPT-04762 Ofc Vst, Est Level III 15:51:15 DIRECTOR OF PHYSICAL EDUCATION Brandy Huston Valero, DO, FACP CPT-79497 Ofc Vst, Est Level IV 13:53:20 CDT Brandytejinder Huston Valero, DO, FACP CPT-76389 Ofc Vst, Est Level IV 13:48:08 CDT Brandytejinder Huston Valero, DO, FACP CPT-20826 Ofc Vst, Est Level IV 11:35:33 DIRECTOR OF PHYSICAL EDUCATION Brandy Huston Marylu, DO, FACP CPT-26527 Ofc Vst, New Level IV 14:26:52 DIRECTOR OF PHYSICAL EDUCATION Brandy Huston Valero, DO, FACP CPT-33288 Ofc Vst, Est Level IV 10:18:50 CDT Brandy Huston Valero, DO, FACP CPT-61223 Ofc Vst, Est Level IV 11:04:40 CDT Brandy Huston Valero, DO, FACP CPT-39648 Ofc Vst, Est Level IV 09:58:36 DIRECTOR OF PHYSICAL EDUCATION Brandy Huston Valero, DO, FACP CPT-25852 Office Consult, Level IV 12:01:33 DIRECTOR OF PHYSICAL EDUCATION Brandy Huston Valero, DO, FACP CPT-52110 Ofc Vst, Est Level IV 11:53:36 CDT Brandy Huston Marylu, DO, FACP CPT-02623 Ofc Vst, Est Level IV 14:23:33 CDT Brandytejinder Valero [facility] CPT-28764 Ofc Vst, Est Level IV 15:40:31 CDT Brandytejinder Cline Marylu [facility] CPT-29792 Ofc Vst, Est Level V 14:39:00 CDT Brandy Marlyn Marylu [facility] CPT-82334 Ofc Vst, Est Level IV 11:56:16 CDT Brandy Marlyn Marylu Valero DO, FACP CPT-40230 Ofc Vst, Est Level IV 13:26:19 DIRECTOR OF PHYSICAL EDUCATION Brandy Marlynsamm Valero DO, FACP CPT-53202 Ofc Vst, Est Level IV 15:50:15 CDT Brandy Marlynsamm Valero DO, FACP CPT-34955 Ofc Vst, Est Level IV 09:48:02 CDT Brandy Marlynsamm Valero DO, FACP CPT-07450 Ofc Vst, Est Level IV 09:41:32 CDT Brandy Valero [facility] [place] CPT-56137 Ofc Vst, Est Level IV 11:54:23 DIRECTOR OF PHYSICAL EDUCATION Brandy Valero [facility] [place] CPT-43219 Ofc Vst, Est Level IV 16:28:13 DIRECTOR OF PHYSICAL EDUCATION Brandy Valero [facility] [place] CPT-77420 Ofc Vst, Est Level IV 12:52:20 DIRECTOR OF PHYSICAL EDUCATION Brandy Valero [facility] [place] CPT-90939 Ofc Vst, Est Level IV 17:48:58 CDT Brandy Valero [facility] [place] CPT-86622 Ofc Vst, New Level IV 11:59:00 CDT Brandy Valero [facility] [place] Procedures Code Procedure Name Date Entry Date Standard Description CPT-G0439 Medicare Annual Wellness Visit 16:56:34 CDT CPT-G8445 E-Prescribing Not sent due to no medication given 14:20: 40 CDT CPT-G8445 E-Prescribing Not sent due to no medication given 16:19: 53 DIRECTOR OF PHYSICAL EDUCATION CPT-G8445 E-Prescribing Not sent due to no medication given 17:14: 55 CDT CPT-G0438 Medicare Annual Wellness Visit Initial 17:14:55 CDT CPT-G8446 E-Prescribing not done due to controlled substance 15:17 :38 CDT CPT-G8445 E-Prescribing Not sent due to no medication given 15:51: 15 DIRECTOR OF PHYSICAL EDUCATION CPT-57109 Administration of 1st dose vaccine 09:58:36 DIRECTOR OF PHYSICAL EDUCATION CPT-89002 Injection, Pneumovax 09:58:36 DIRECTOR OF PHYSICAL EDUCATION CPT-06885 Cryopathy Skin 17:48:58 CDT
--- OUTSIDE RECORDS SUMMARY | 2017-05-14 12:16 | XMS REPORT | Clinical Summary ---
Author Author User, KEYANA Organization [facility] [place] Address Unknown Phone Unavailable Allergies, Adverse Reactions, [...] MG TAB 1 PO daily LEVOTHYROXINE SODIUM 26215979996 Active Brandy Valero MOBIC 15 MG TABS 1 PO daily. MELOXICAM 80742316288 No Longer Active Brandy Valero HYDROCODONE-ACETAMINOPHEN 5-325 MG TABS 1 PO BID prn. HYDROCODONE- ACETAMINOPHEN 80749083021 Active Brandy Valero LORTAB 5/325 MG 1 to 2 PO Q6hrs prn LORTAB 5/325 MG No Longer Active Livier Rose ACCU-CHEK MULTICLIX LANCETS MISC Test BS QID DX: Diabetes 11/18 LANCETS 29451524439 No Longer Active Brandy Valero ONE TOUCH ULTRA TEST SRIPS Test BS QID DX: Diabetes ONE TOUCH ULTRA TEST SRIPS No Longer Active Brandy Marlyn Valero ZOCOR 20 MG TAB 1 PO daily SIMVASTATIN 27506609686 Active Liviervalencia Rose LASIX 40 MG TAB 1 PO daily as directed FUROSEMIDE 20272399273 Active Brandy Marlyn Valero LOFIBRA 54 MG TABS 1 PO daily FENOFIBRATE 13227527579 Active Livier Myricktis ZOSTAVAX 22183 UNT/0.65ML SOLR 1 injection once to prevent Shingles ZOSTER VACCINE LIVE 83408304571 No Longer Active Brandy Marlyn Valero LOVAZA 1 GM CAPS 1 po QID VAGNY-0-HJIL ETHYL ESTERS 28770672383 Active Brandy Marlyn Valero ACCUPRIL 20 MG TABS 1 po bid QUINAPRIL HCL 94954182409 No Longer Active Brandy Marlyn Valero TOPAMAX 100 MG TABS 1 po QHS TOPIRAMATE 47389058001 Active Brandy Marlyn Valero TOPAMAX 50 MG TABS 1 po at HS along with 100 mg. to total 150 mg TOPIRAMATE 16430145357 No Longer Active Brandytejinder Valero VITAMIN D 1000 UNIT CAPS 1 po daily CHOLECALCIFEROL 81625391099 Active Brandy Marlyn Valero LASIX 20 MG TABS 1 PO daily FUROSEMIDE 06301764751 No Longer Active Brandy Marlyn Valero VIAGRA 50 MG TABS 1 PO as directed SILDENAFIL CITRATE 55967014423 No Longer Active Brandy Marlyn Valero ECOTRIN 325 MG TBEC 1 po daily ASPIRIN 12623433318 No Longer Active Brandy Marlyn Valero CARDURA 4 MG TABS 1 PO daily DOXAZOSIN MESYLATE 65242829577 Active Livier Rose DOXAZOSIN MESYLATE 4 MG TABS 1 po at hs DOXAZOSIN MESYLATE 59829777235 No Longer Active Brandy Marlyn Valero GLUCOPHAGE 500 MG TABS 1 po BID METFORMIN HCL 55809002655 No Longer Active Brandy Valero LORTAB 5 5-500 MG TABS 1 to 2 PO Q6hrs prn ACETAMINOPHEN- HYDROCODONE 55798095314 No Longer Active Livier Rose NORVASC 5 MG TAB 1 PO QD AMLODIPINE BESYLATE 53232921352 Active Brandytejinder Valero MADHAV-D 12 HOUR 60-120 MG TB12 1 PO BID prn sinus congestion FEXOFENADINE-PSEUDOEPHEDRINE 63110061162 No Longer Active Brandytejinder Valero LORTAB 5 5-500 MG TABS 1 to 2 PO Q6hrs prn ACETAMINOPHEN- HYDROCODONE 90778076844 No Longer Active Brandytejinder Valero AVANDIA 2 MG TABS 1 po BID ROSIGLITAZONE MALEATE 33430380294 No Longer Active Brandy Valero QUINAPRIL HCL 40 MG TABS 1 po BID QUINAPRIL HCL 60511180878 No Longer Active Brandytejinder Valero ROBITUSSIN A-C 10-100 MG/5ML SYRUP 5cc PO Q 4-6 hr prn ROBITUSSIN A-C 10-100 MG/5ML SYRUP 90648259607 No Longer Active Livier Rose ACCU-CHEK MAXINE TEST SRIPS Test BS QID DX: Diabetes ACCU- CHEK MAXINE TEST SRIPS No Longer Active Livier Rose CIALIS 20 MG TABS 1 PO before sexual activity TADALAFIL 42785733655 No Longer Active Brandy Valero HUMALOG 100 U/ML SOLN 1 unit/hr basal and 25 units before meals INSULIN LISPRO (HUMAN) 29009028879 Active Livier Rose ASPIRIN 81 MG TBEC 2 po daily ASPIRIN 28310181947 Active Brandytejinder Valero VYTORIN 10-20 MG TABS 1 po daily EZETIMIBE-SIMVASTATIN 09034492492 No Longer Active Philip Nena FISH OIL 1000 MG CAPS 3 po daily OMEGA-3 FATTY ACIDS 34135336354 No Longer Active Brandy Valero VITAMIN E 400 IU CAPS 1 po daily VITAMIN E 25909560039 Active Brandy Valero MULTIVITAMINS TABS 1 po daily MULTIPLE VITAMIN 22681705497 Active Brandy Valero HYZAAR 100-25 MG TABS 1 po daily LOSARTAN POTASSIUM-HCTZ 00342748718 Active Livier Rose LIPITOR 20 MG TABS 1 po daily ATORVASTATIN CALCIUM 00818567527 No Longer Active Liviervalencia Rose ACTOS 30 MG TABS 1 po daily PIOGLITAZONE HCL 14390607553 Active Livier Myricktis Immunizations Vaccine Administration Date [...] mg/dL Encounters Code Encounter Date Provider Facility CPT-94092 Ofc Vst, Est Level III 21:05:26 CDT Brandy Valero DO, FACP CPT-41978 Ofc Vst, Est Level III 16:08:34 CDT Brandy Valero DO, FACP CPT-15177 Ofc Vst, Est Level III 14:20:40 CDT Brandy Valero DO, FACP CPT-51847 Ofc Vst, Est Level III 16:19:53 [employer] Brandy Valero DO, FACP CPT-71655 Ofc Vst, Est Level III 15:17:38 CDT Brandytejinder Huston Marylu, DO, FACP CPT-85181 Ofc Vst, Est Level III 15:51:15 [employer] Brandy Huston Marylu, DO, FACP CPT-76223 Ofc Vst, Est Level IV 13:53:20 CDT Brandy Marlyn Huston Marylu, DO, FACP CPT-54786 Ofc Vst, Est Level IV 13:48:08 CDT Brandy Marlyn Huston Marylu, DO, FACP CPT-78532 Ofc Vst, Est Level IV 11:35:33 [employer] Brandy Huston Marylu, DO, FACP CPT-50403 Ofc Vst, New Level IV 14:26:52 [employer] Brandy Marlyn Huston Marylu, DO, FACP CPT-10134 Ofc Vst, Est Level IV 10:18:50 CDT Brandytejinder Huston Marylu, DO, FACP CPT-48233 Ofc Vst, Est Level IV 11:04:40 CDT Brandytejinder Huston Marylu, DO, FACP CPT-67294 Ofc Vst, Est Level IV 09:58:36 [employer] Brandy Huston Marylu, DO, FACP CPT-89263 Office Consult, Level IV 12:01:33 [employer] Brandy Huston Marylu, DO, FACP CPT-15474 Ofc Vst, Est Level IV 11:53:36 CDT Brandy Huston Marylu, DO, FACP CPT-42764 Ofc Vst, Est Level IV 14:23:33 CDT Brandy Marlyn Marylu [facility] CPT-81373 Ofc Vst, Est Level IV 15:40:31 CDT Brandy Marlyn Marylu [facility] CPT-48808 Ofc Vst, Est Level V 14:39:00 CDT [facility] Marlyn Velardener [facility] CPT-69767 Ofc Vst, Est Level IV 11:56:16 CDT Brandytejinder Valero Brandy Valero, DO, FACP CPT-73347 Ofc Vst, Est Level IV 13:26:19 [employer] Brandytejinder Velardeshane Valero, DO, FACP CPT-98028 Ofc Vst, Est Level IV 15:50:15 CDT Brandy Marlyn Marylu Valero, DO, FACP CPT-42483 Ofc Vst, Est Level IV 09:48:02 CDT Brandytejinder Cline Marylu Valero, DO, FACP CPT-46115 Ofc Vst, Est Level IV 09:41:32 CDT Brandy Marlyn Valero [facility] [place] CPT-93064 Ofc Vst, Est Level IV 11:54:23 [employer] Brandytejinder Valero [facility] [place] CPT-42255 Ofc Vst, Est Level IV 16:28:13 [employer] Brandytejinder Valero [facility] [place] CPT-10811 Ofc Vst, Est Level IV 12:52:20 [employer] Brandy Valero [facility] [place] CPT-32807 Ofc Vst, Est Level IV 17:48:58 CDT [facility] Marlynsamm Valero [facility] [place] CPT-40252 Ofc Vst, New Level IV 11:59:00 CDT [facility] Marlyn Valero [facility] [place] Procedures Code Procedure Name Date Entry Date Standard Description CPT-G0439 Medicare Annual Wellness Visit 16:56:34 CDT CPT-G8445 E-Prescribing Not sent due to no medication given 14:20: 40 CDT CPT-G8445 E-Prescribing Not sent due to no medication given 16:19: 53 [employer] CPT-G8445 E-Prescribing Not sent due to no medication given 17:14: 55 CDT CPT-G0438 Medicare Annual Wellness Visit Initial 17:14:55 CDT CPT-G8446 E-Prescribing not done due to controlled substance 15:17 :38 CDT CPT-G8445 E-Prescribing Not sent due to no medication given 15:51: 15 [employer] CPT-14622 Administration of 1st dose vaccine 09:58:36 [employer] CPT-18430 Injection, Pneumovax 09:58:36 [employer] CPT-04218 Cryopathy Skin 17:48:58 CDT
--- OUTSIDE RECORDS SUMMARY | 2017-05-14 12:17 | XMS REPORT | Clinical Summary ---
Author Author User, KEYANA Organization [facility] [place] Address Unknown Phone Unavailable Allergies, Adverse Reactions, [...] MG TAB 1 PO daily LEVOTHYROXINE SODIUM 06981870859 Active Brandy Valero MOBIC 15 MG TABS 1 PO daily. MELOXICAM 45060601394 No Longer Active Brandy Valero HYDROCODONE-ACETAMINOPHEN 5-325 MG TABS 1 PO BID prn. HYDROCODONE- ACETAMINOPHEN 63398413887 Active Brandy Valero LORTAB 5/325 MG 1 to 2 PO Q6hrs prn LORTAB 5/325 MG No Longer Active Livier Rose ACCU-CHEK MULTICLIX LANCETS MISC Test BS QID DX: Diabetes 11/18 LANCETS 63979469774 No Longer Active Brandy Valero ONE TOUCH ULTRA TEST SRIPS Test BS QID DX: Diabetes ONE TOUCH ULTRA TEST SRIPS No Longer Active Brandy Marlyn Valero ZOCOR 20 MG TAB 1 PO daily SIMVASTATIN 14482769495 Active Liviervalencia Rose LASIX 40 MG TAB 1 PO daily as directed FUROSEMIDE 74206393143 Active Brandy Marlyn Valero LOFIBRA 54 MG TABS 1 PO daily FENOFIBRATE 47066019209 Active Livier Myricktis ZOSTAVAX 33102 UNT/0.65ML SOLR 1 injection once to prevent Shingles ZOSTER VACCINE LIVE 55011929788 No Longer Active Brandy Marlyn Valero LOVAZA 1 GM CAPS 1 po QID HEZME-2-SQTF ETHYL ESTERS 70379284315 Active Brandy Marlyn Valero ACCUPRIL 20 MG TABS 1 po bid QUINAPRIL HCL 25770724398 No Longer Active Brandy Marlyn Valero TOPAMAX 100 MG TABS 1 po QHS TOPIRAMATE 86225158287 Active Brandy Marlyn Valero TOPAMAX 50 MG TABS 1 po at HS along with 100 mg. to total 150 mg TOPIRAMATE 02007624757 No Longer Active Brandytejinder Valero VITAMIN D 1000 UNIT CAPS 1 po daily CHOLECALCIFEROL 43354252394 Active Brandy Marlyn Valero LASIX 20 MG TABS 1 PO daily FUROSEMIDE 81657972138 No Longer Active Brandy Marlyn Valero VIAGRA 50 MG TABS 1 PO as directed SILDENAFIL CITRATE 31290622101 No Longer Active Brandy Marlyn Valero ECOTRIN 325 MG TBEC 1 po daily ASPIRIN 94326224639 No Longer Active Brandy Marlyn Valero CARDURA 4 MG TABS 1 PO daily DOXAZOSIN MESYLATE 72414567054 Active Livier Rose DOXAZOSIN MESYLATE 4 MG TABS 1 po at hs DOXAZOSIN MESYLATE 45320958200 No Longer Active Brandy Marlyn Valero GLUCOPHAGE 500 MG TABS 1 po BID METFORMIN HCL 62149508894 No Longer Active Brandy Valero LORTAB 5 5-500 MG TABS 1 to 2 PO Q6hrs prn ACETAMINOPHEN- HYDROCODONE 58802104598 No Longer Active Livier Rose NORVASC 5 MG TAB 1 PO QD AMLODIPINE BESYLATE 98591260131 Active Brandytejinder Valero MADHAV-D 12 HOUR 60-120 MG TB12 1 PO BID prn sinus congestion FEXOFENADINE-PSEUDOEPHEDRINE 28369657846 No Longer Active Brandytejinder Valero LORTAB 5 5-500 MG TABS 1 to 2 PO Q6hrs prn ACETAMINOPHEN- HYDROCODONE 38410525688 No Longer Active Brandytejinder Valero AVANDIA 2 MG TABS 1 po BID ROSIGLITAZONE MALEATE 68117736016 No Longer Active Brandy Valero QUINAPRIL HCL 40 MG TABS 1 po BID QUINAPRIL HCL 26496996122 No Longer Active Brandytejinder Valero ROBITUSSIN A-C 10-100 MG/5ML SYRUP 5cc PO Q 4-6 hr prn ROBITUSSIN A-C 10-100 MG/5ML SYRUP 71299924266 No Longer Active Livier Rose ACCU-CHEK MAXINE TEST SRIPS Test BS QID DX: Diabetes ACCU- CHEK MAXINE TEST SRIPS No Longer Active Livier Rose CIALIS 20 MG TABS 1 PO before sexual activity TADALAFIL 44250562085 No Longer Active Brandy Valero HUMALOG 100 U/ML SOLN 1 unit/hr basal and 25 units before meals INSULIN LISPRO (HUMAN) 92436130441 Active Livier Rose ASPIRIN 81 MG TBEC 2 po daily ASPIRIN 48022999076 Active Brandytejinder Valero VYTORIN 10-20 MG TABS 1 po daily EZETIMIBE-SIMVASTATIN 29595987498 No Longer Active Philip Enna FISH OIL 1000 MG CAPS 3 po daily OMEGA-3 FATTY ACIDS 27685850207 No Longer Active Brandy Valero VITAMIN E 400 IU CAPS 1 po daily VITAMIN E 44140243270 Active Brandy Valero MULTIVITAMINS TABS 1 po daily MULTIPLE VITAMIN 63980096043 Active Brandy Valero HYZAAR 100-25 MG TABS 1 po daily LOSARTAN POTASSIUM-HCTZ 32690593218 Active Livier Rose LIPITOR 20 MG TABS 1 po daily ATORVASTATIN CALCIUM 62709719846 No Longer Active Liviervalencia Rose ACTOS 30 MG TABS 1 po daily PIOGLITAZONE HCL 02401474674 Active Livier Myricktis Immunizations Vaccine Administration Date [...] mg/dL Encounters Code Encounter Date Provider Facility CPT-59798 Ofc Vst, Est Level III 21:05:26 CDT Brandy Valero DO, FACP CPT-96266 Ofc Vst, Est Level III 16:08:34 CDT Brandy Valero DO, FACP CPT-71070 Ofc Vst, Est Level III 14:20:40 CDT Brandy Valero DO, FACP CPT-06795 Ofc Vst, Est Level III 16:19:53 DATA MANAGER Brandy Valero DO, FACP CPT-62124 Ofc Vst, Est Level III 15:17:38 CDT Brandytejinder Huston Marylu, DO, FACP CPT-72207 Ofc Vst, Est Level III 15:51:15 DATA MANAGER Brandy Huston Marylu, DO, FACP CPT-21558 Ofc Vst, Est Level IV 13:53:20 CDT Brandy Marlyn Huston Marylu, DO, FACP CPT-61276 Ofc Vst, Est Level IV 13:48:08 CDT Brandy Marlyn Huston Marylu, DO, FACP CPT-68610 Ofc Vst, Est Level IV 11:35:33 DATA MANAGER Brandy Huston Marylu, DO, FACP CPT-56248 Ofc Vst, New Level IV 14:26:52 DATA MANAGER Brandy Marlyn Huston Marylu, DO, FACP CPT-35650 Ofc Vst, Est Level IV 10:18:50 CDT Brandytejinder Huston Marylu, DO, FACP CPT-32575 Ofc Vst, Est Level IV 11:04:40 CDT Brandytejinder Huston Marylu, DO, FACP CPT-40755 Ofc Vst, Est Level IV 09:58:36 DATA MANAGER Brandy Huston Marylu, DO, FACP CPT-27958 Office Consult, Level IV 12:01:33 DATA MANAGER Brandy Huston Marylu, DO, FACP CPT-15776 Ofc Vst, Est Level IV 11:53:36 CDT Brandy Huston Marylu, DO, FACP CPT-75344 Ofc Vst, Est Level IV 14:23:33 CDT Brandy Marlyn Marylu [place] [facility] [facility] CPT-45443 Ofc Vst, Est Level IV 15:40:31 CDT Brandy Marlyn Marylu [place] [facility] CPT-42970 Ofc Vst, Est Level V 14:39:00 CDT [facility] Marlyn Velardener [place] [facility] CPT-99120 Ofc Vst, Est Level IV 11:56:16 CDT Brandytejinder Valero Brandy Valero, DO, FACP CPT-35628 Ofc Vst, Est Level IV 13:26:19 DATA MANAGER Brandytejinder Velardeshane Valero, DO, FACP CPT-91298 Ofc Vst, Est Level IV 15:50:15 CDT Brandy Marlyn Marylu Valero, DO, FACP CPT-64234 Ofc Vst, Est Level IV 09:48:02 CDT Brandytejinder Cline Marylu Valero, DO, FACP CPT-80988 Ofc Vst, Est Level IV 09:41:32 CDT Brandy Marlyn Valero [facility] [place] CPT-40562 Ofc Vst, Est Level IV 11:54:23 DATA MANAGER Brandytejinder Valero [facility] [place] CPT-50323 Ofc Vst, Est Level IV 16:28:13 DATA MANAGER Brandytejinder Valero [facility] [place] CPT-58237 Ofc Vst, Est Level IV 12:52:20 DATA MANAGER Brandy Valero [facility] [place] CPT-10788 Ofc Vst, Est Level IV 17:48:58 CDT [facility] Marlynsamm Valero [facility] [place] CPT-20180 Ofc Vst, New Level IV 11:59:00 CDT [facility] Marlyn Valero [facility] [place] Procedures Code Procedure Name Date Entry Date Standard Description CPT-G0439 Medicare Annual Wellness Visit 16:56:34 CDT CPT-G8445 E-Prescribing Not sent due to no medication given 14:20: 40 CDT CPT-G8445 E-Prescribing Not sent due to no medication given 16:19: 53 DATA MANAGER CPT-G8445 E-Prescribing Not sent due to no medication given 17:14: 55 CDT CPT-G0438 Medicare Annual Wellness Visit Initial 17:14:55 CDT CPT-G8446 E-Prescribing not done due to controlled substance 15:17 :38 CDT CPT-G8445 E-Prescribing Not sent due to no medication given 15:51: 15 DATA MANAGER CPT-73573 Administration of 1st dose vaccine 09:58:36 DATA MANAGER CPT-29152 Injection, Pneumovax 09:58:36 DATA MANAGER CPT-27273 Cryopathy Skin 17:48:58 CDT
--- OUTSIDE RECORDS SUMMARY | 2017-05-14 12:18 | XMS REPORT | Continuity of Care Document ---
Author Author [facility] Organization [facility] Address Unknown Phone Unavailable Allergies Active Description Code Type Severity Reaction Onset Reported/Identified Relationship to Patient Clinical Status Yes NKANo Known Allergies NKA Miscellaneous Allergy Unknown N/A 04/28/2006 Medications There is no data. Problems There is no data. Procedures There is no data. Results There is no data. Encounters ACCT No. Visit Date/Time Discharge Status Pt. Type Provider Facility Loc./Unit Complaint [id number] 05/11/2017 05:39:00 05/11/2017 11:59:00 DIS Outpatient MARCELA BRIGGS DO [facility] PREOP COLONOSCOPY [id number] 08/06/2013 13:37:00 08/06/2013 23:59:59 CLS Outpatient [id number] 05/14/2017 13:40:00 PEN Preadmit MARCELA BRIGGS DO [facility] ENDO SCREENING
--- OUTSIDE RECORDS SUMMARY | 2017-05-14 12:18 | XMS REPORT | Clinical Summary ---
Author Author User, [email or web address] Organization [facility] [place] Address Unknown Phone Unavailable Allergies, Adverse Reactions, [...] MG TAB 1 PO daily LEVOTHYROXINE SODIUM 72850249215 Active Brandy Valero MOBIC 15 MG TABS 1 PO daily. MELOXICAM 45112160723 No Longer Active Brandy Valero HYDROCODONE-ACETAMINOPHEN 5-325 MG TABS 1 PO BID prn. HYDROCODONE- ACETAMINOPHEN 03388987561 Active Brandy Valero LORTAB 5/325 MG 1 to 2 PO Q6hrs prn LORTAB 5/325 MG No Longer Active Livier Rose ACCU-CHEK MULTICLIX LANCETS MISC Test BS QID DX: Diabetes 11/18 LANCETS 76725899209 No Longer Active Brandy Valero ONE TOUCH ULTRA TEST SRIPS Test BS QID DX: Diabetes ONE TOUCH ULTRA TEST SRIPS No Longer Active Brandytejinder Valero ZOCOR 20 MG TAB 1 PO daily SIMVASTATIN 27600441464 Active Liviervalencia Rose LASIX 40 MG TAB 1 PO daily as directed FUROSEMIDE 75929200318 Active Brandy Marlyn Valero LOFIBRA 54 MG TABS 1 PO daily FENOFIBRATE 80232875477 Active Liviervalencia Rose ZOSTAVAX 50304 UNT/0.65ML SOLR 1 injection once to prevent Shingles ZOSTER VACCINE LIVE 61318372319 No Longer Active Brandy Marlyn Valero LOVAZA 1 GM CAPS 1 po QID KXAQH-3-ISVQ ETHYL ESTERS 99324919035 Active Brandy Marlyn Valero ACCUPRIL 20 MG TABS 1 po bid QUINAPRIL HCL 29074688976 No Longer Active Brandytejinder Valero TOPAMAX 100 MG TABS 1 po QHS TOPIRAMATE 12576611732 Active Brandy Marlyn Valero TOPAMAX 50 MG TABS 1 po at HS along with 100 mg. to total 150 mg TOPIRAMATE 64195746475 No Longer Active Brandytejinder Valero VITAMIN D 1000 UNIT CAPS 1 po daily CHOLECALCIFEROL 57345870884 Active Brandytejinder Valero LASIX 20 MG TABS 1 PO daily FUROSEMIDE 38153412674 No Longer Active Brandy Marlyn Valero VIAGRA 50 MG TABS 1 PO as directed SILDENAFIL CITRATE 80578109793 No Longer Active Brandy Marlyn Valero ECOTRIN 325 MG TBEC 1 po daily ASPIRIN 07984998855 No Longer Active Brandy Marlyn Valero CARDURA 4 MG TABS 1 PO daily DOXAZOSIN MESYLATE 30796289832 Active Livier Rose DOXAZOSIN MESYLATE 4 MG TABS 1 po at hs DOXAZOSIN MESYLATE 46269213850 No Longer Active Brandy Marlyn Valero GLUCOPHAGE 500 MG TABS 1 po BID METFORMIN HCL 48478787713 No Longer Active Brandy Valero LORTAB 5 5-500 MG TABS 1 to 2 PO Q6hrs prn ACETAMINOPHEN- HYDROCODONE 69782794598 No Longer Active Livier Rose NORVASC 5 MG TAB 1 PO QD AMLODIPINE BESYLATE 37738309044 Active Brandytejinder Valero MADHAV-D 12 HOUR 60-120 MG TB12 1 PO BID prn sinus congestion FEXOFENADINE-PSEUDOEPHEDRINE 69871038919 No Longer Active Brandytejinder Valero LORTAB 5 5-500 MG TABS 1 to 2 PO Q6hrs prn ACETAMINOPHEN- HYDROCODONE 18404345821 No Longer Active Brandy Valero AVANDIA 2 MG TABS 1 po BID ROSIGLITAZONE MALEATE 39021005186 No Longer Active Brandy Valero QUINAPRIL HCL 40 MG TABS 1 po BID QUINAPRIL HCL 83948818979 No Longer Active Brandytejinder Valero ROBITUSSIN A-C 10-100 MG/5ML SYRUP 5cc PO Q 4-6 hr prn ROBITUSSIN A-C 10-100 MG/5ML SYRUP 25912880796 No Longer Active Livier Rose ACCU-CHEK MAXINE TEST SRIPS Test BS QID DX: Diabetes ACCU- CHEK MAXINE TEST SRIPS No Longer Active Livier Rose CIALIS 20 MG TABS 1 PO before sexual activity TADALAFIL 27047752466 No Longer Active Brandy Valero HUMALOG 100 U/ML SOLN 1 unit/hr basal and 25 units before meals INSULIN LISPRO (HUMAN) 79380092965 Active Livier Rose ASPIRIN 81 MG TBEC 2 po daily ASPIRIN 10706488959 Active Brandytejinder Valero VYTORIN 10-20 MG TABS 1 po daily EZETIMIBE-SIMVASTATIN 87076206210 No Longer Active Philip Holt FISH OIL 1000 MG CAPS 3 po daily OMEGA-3 FATTY ACIDS 02351702329 No Longer Active Brandy Valero VITAMIN E 400 IU CAPS 1 po daily VITAMIN E 90026485428 Active Brandy Valero MULTIVITAMINS TABS 1 po daily MULTIPLE VITAMIN 90722744345 Active Brandy Valero HYZAAR 100-25 MG TABS 1 po daily LOSARTAN POTASSIUM-HCTZ 81878123339 Active Livier Myricktis LIPITOR 20 MG TABS 1 po daily ATORVASTATIN CALCIUM 87742156233 No Longer Active Liviervalencia Rose ACTOS 30 MG TABS 1 po daily PIOGLITAZONE HCL 42461045282 Active Livier Rose Immunizations Vaccine Administration Date [...] mg/dL Encounters Code Encounter Date Provider Facility CPT-35521 Ofc Vst, Est Level III 21:05:26 CDT Brandy Valero DO, FACP CPT-32666 Ofc Vst, Est Level III 16:08:34 CDT Brandy Valero DO, FACP CPT-59919 Ofc Vst, Est Level III 14:20:40 CDT Brandy Valero DO, FACP CPT-91819 Ofc Vst, Est Level III 16:19:53 NURSE ORTHO Brandy Vaelro DO, FACP CPT-83186 Ofc Vst, Est Level III 15:17:38 CDT Brandytejinder Huston Marylu, DO, FACP CPT-60662 Ofc Vst, Est Level III 15:51:15 NURSE ORTHO Brandy Huston Marylu, DO, FACP CPT-48910 Ofc Vst, Est Level IV 13:53:20 CDT Brandy Marlyn Huston Marylu, DO, FACP CPT-47995 Ofc Vst, Est Level IV 13:48:08 CDT Brandy Marlyn Huston Marylu, DO, FACP CPT-06535 Ofc Vst, Est Level IV 11:35:33 NURSE ORTHO Brandy Huston Marylu, DO, FACP CPT-69754 Ofc Vst, New Level IV 14:26:52 NURSE ORTHO Brandy Marlyn Huston Marylu, DO, FACP CPT-72824 Ofc Vst, Est Level IV 10:18:50 CDT Brandy Marlyn Huston Marylu, DO, FACP CPT-38911 Ofc Vst, Est Level IV 11:04:40 CDT Brandy Marlyn Huston Marylu, DO, FACP CPT-76040 Ofc Vst, Est Level IV 09:58:36 NURSE ORTHO Brandy Huston Marylu, DO, FACP CPT-41386 Office Consult, Level IV 12:01:33 NURSE ORTHO Brandy Huston Marylu, DO, FACP CPT-53858 Ofc Vst, Est Level IV 11:53:36 CDT Brandy Marlyn Huston Marylu, DO, FACP CPT-91642 Ofc Vst, Est Level IV 14:23:33 CDT Brandy Marlyn Marylu [facility] CPT-82370 Ofc Vst, Est Level IV 15:40:31 CDT Brandy Marlyn Marylu [facility] CPT-04325 Ofc Vst, Est Level V 14:39:00 CDT [facility] Marlyn Velardener [facility] [facility] CPT-21880 Ofc Vst, Est Level IV 11:56:16 CDT Brandytejinder Velardeshane Valero, DO, FACP CPT-15294 Ofc Vst, Est Level IV 13:26:19 NURSE ORTHO Brandytejinder Cline Marylu Valero, DO, FACP CPT-24860 Ofc Vst, Est Level IV 15:50:15 CDT Brandy Marlyn Marylu Valero, DO, FACP CPT-49030 Ofc Vst, Est Level IV 09:48:02 CDT Brandy Marlyn Marylu Valero, DO, FACP CPT-24149 Ofc Vst, Est Level IV 09:41:32 CDT Brandytejinder Valero [facility] [place] CPT-17931 Ofc Vst, Est Level IV 11:54:23 NURSE ORTHO Brandy Valero [facility] [place] CPT-84152 Ofc Vst, Est Level IV 16:28:13 NURSE ORTHO Brandy Valero [facility] [place] CPT-07795 Ofc Vst, Est Level IV 12:52:20 NURSE ORTHO Brandy Valero [facility] [place] CPT-33011 Ofc Vst, Est Level IV 17:48:58 CDT Brandy Marlyn Valero [facility] [place] CPT-90017 Ofc Vst, New Level IV 11:59:00 CDT Brandytejinder Valero [facility] [place] Procedures Code Procedure Name Date Entry Date Standard Description CPT-G0439 Medicare Annual Wellness Visit 16:56:34 CDT CPT-G8445 E-Prescribing Not sent due to no medication given 14:20: 40 CDT CPT-G8445 E-Prescribing Not sent due to no medication given 16:19: 53 NURSE ORTHO CPT-G8445 E-Prescribing Not sent due to no medication given 17:14: 55 CDT CPT-G0438 Medicare Annual Wellness Visit Initial 17:14:55 CDT CPT-G8446 E-Prescribing not done due to controlled substance 15:17 :38 CDT CPT-G8445 E-Prescribing Not sent due to no medication given 15:51: 15 NURSE ORTHO CPT-36186 Administration of 1st dose vaccine 09:58:36 NURSE ORTHO CPT-29610 Injection, Pneumovax 09:58:36 NURSE ORTHO CPT-98405 Cryopathy Skin 17:48:58 CDT
[2017-05-14 12:31] VITALS: BP 158/78
[2017-05-14] MEDS ORDERED: MIDAZOLAM 2 MG/2 ML (VERSED) VIAL ONE (13:06)
[2017-05-14] MEDS ORDERED: proPOfol 200 MG/20 ML (DIPRIVAN) VIAL IV ONE (13:06)
--- NOTE | 2017-05-14 13:08 | Progress Note-Pre Operative ---
Pre-Operative Progress Note H&P Reviewed The H&P was reviewed, patient examined and no changes noted. Time Seen by Provider: 13:03 Date H&P Reviewed: May 14, 2017 Time H&P Reviewed: 13:05 Pre-Operative Diagnosis: screening colonoscopy MARCELA BRIGGS DO May 14, 2017 13:08
--- NOTE | 2017-05-14 14:11 | Progress Note-Post Operative ---
Post-Operative Progess Note Surgeon (s)/Housekeeping Worker (s) Surgeon MARCELA BRIGGS DO Housekeeping Worker: none Pre-Operative Diagnosis screening colonoscopy Post-Operative Diagnosis Diverticula Internal hemorrhoids Procedure & Operative Findings Date of Procedure 05/14/17 Procedure Performed/Findings colonoscopy Anesthesia Type IV sedation by anesthesia Estimated Blood Loss Estimated blood loss (mL): none Specimens/Packing Specimens Removed none MARCELA BRIGGS DO May 14, 2017 14:11
--- NOTE | 2017-05-14 14:12 | Endoscopy Discharge Instruct ---
Endo Procedure/Findings Findings 1.: Diverticulosis 2.: Internal Hemorrhoids Discharge Instructions - Activity: You might feel a little sleepy until tomorrow. This is due to the medicine you received to relax you. Until tomorrow, you should: NOT drive a car, operate machinery or power tools. NOT drink any alcoholic beverages. NOT make any important decisions or sign importortant papers. Do not return to work until tomorrow, unless otherwise instructed. Resume previous activities tomorrow. Diet: Start by taking liquids. If you tolerate liquids, advance to solid food. Make appt for one week. Notify Physician - If you experience excessive bleeding, unusual abdominal pain, fever, or chest pain, contact your doctor immediately. Follow-Up: - I have received and understand the above instructions and will call my doctor if I have any further questions. Patient Signature Date Nurse Signature Other (Relationship) MARCELA BRIGGS DO May 14, 2017 14:12
[2017-05-14 14:15] VITALS: BP 158/85
[2017-05-14 14:40] VITALS: BP 157/78
[2017-05-14 14:45] VITALS: BP 157/78
--- NOTE | 2017-05-14 23:11 | OPERATIVE REPORT ---
DATE OF SERVICE: 05/14/2017 PREOPERATIVE DIAGNOSIS: Screening colonoscopy. POSTOPERATIVE DIAGNOSES: 1. Diverticula. 2. Internal hemorrhoids. PROCEDURE: Colonoscopy. SURGEON: Adeel Loredo DO PRODUCTION ADMINISTRATIVE ASSISTANT: None. ANESTHESIA: IV sedation by the anesthesiologist. SPECIMENS: None. BLOOD LOSS: None. FLUIDS: Per anesthesia. POSTOPERATIVE CONDITION: Stable. INDICATION FOR PROCEDURE: The patient is a 71-year-old male who was due for screening colonoscopy. FINDINGS: The patient had some diverticula throughout the sigmoid and ascending colon and some internal hemorrhoids, otherwise no obvious pathology. PROCEDURE NOTE: After informed consent was obtained, patient was brought to the endoscopy suite, placed in the bed in the left lateral decubitus position. He was administered IV sedation by the anesthesiologist, who then monitored his vitals the entire time; heart rate, blood pressure and pulse ox. The scope was inserted and pushed all the way to about 150 cm, able to get all the way to cecum, took a picture of the appendiceal orifice, noted the ileocecal valve and was able to get into the terminal ileum and took a picture. On the way he noted a lot of diverticula, he took pictures of these as well and then from the cecum insufflated to look circumferentially at the raza looking at the cecum up the ascending colon to the hepatic flexure, then down the transverse colon, the splenic flexure and into the descending colon and sigmoid. Most of the diverticula seen in descending and sigmoid colon. Continued down to the sigmoid colon into the rectum; retroflexed in the rectal vault, saw some internal hemorrhoids, took a picture of this. No other obvious pathology. Scope was removed and patient tolerated the procedure. He was recovered in the endoscopy suite. Job ID: [id number] DocumentID: [id number] Dictated Date: 05/14/2017 14:17:32 Transmission Engineer Date: 05/14/2017 23:10:45 Dictated By: ADEEL LOREDO DO [facility]
== END 2017-05-14 14:45 | disposition home or self-care (01) ==
LOC: ENDO 12:07
PROVIDERS: ATTEND Surgery
DX: Z12.11 Encounter for screening for malignant neoplasm of colon (principal); K57.30 Diverticulosis of large intestine without perforation or abscess without bleeding; K64.8 Other hemorrhoids; E11.9 Type 2 diabetes mellitus without complications; E78.5 Hyperlipidemia, unspecified; I10 Essential (primary) hypertension; Z86.73 Personal history of transient ischemic attack (TIA), and cerebral infarction without residual deficits; Z87.891 Personal history of nicotine dependence; Z79.899 Other long term (current) drug therapy; G47.33 Obstructive sleep apnea (adult) (pediatric)
CPT/HCPCS: G0121; 82962